=== PATIENT | female | born 1975 | race Caucasian/White ===

== ENCOUNTER 2019-09-20 12:59 | Emergency (ER) | payer BC, SELFPAY ==
[2019-09-20 13:01] VITALS: BP 146/84; PULSE 70; RESP 19; TEMP 36.5; O2SAT 100; BMI 36.8
--- NOTE | 2019-09-20 13:35 | HMH.EDUTC ---
[facility] Disposition Clinical Impression: Poison irena dermatitis Disposition: Home, Self-Care Condition on Discharge: Good Instructions: Summertime Rashes: Poison Irena, [place], and [place], Poison Irena, Poison [place], Poison [place], DI for Poison Irena Allergy, Prednisone Additional Instructions: Try to avoid three leafed plants Take Prednisone as prescribed Over the counter Benadryl may help with itching Oatmeal baths Cool, wet compresses Ice packs Topical menthol and phenol (calamine lotion) compounds may help to soothe the rash Follow up with Dr Padilla at [facility] if you start having any vison problems or changes in vision Return if needed Straight to ER if any life threatening symptoms Start Prednisone dose pack tomorrow Prescriptions: predniSONE [Prednisone 10mg Tab Dose-Pack] 10 mg PO UD DOSE PK #21 pack Transmission Status: Received by [facility] Referrals: Irma Royal PA [Primary Care Provider] - As needed Time of Disposition: 13:44 Medical Decision Making - Prince Inquiry Pt receiving controlled substance: No Prince was queried for this patient: No Vital Signs: 09/20/19 13:01 Temperature 97.7 F Temperature Source Oral Pulse Rate [Radial] 70 Respiratory Rate 19 Blood Pressure [Right Arm] 146/84 H Blood Pressure Mean [Right Arm] 104 Blood Pressure Source [Right Arm] Automatic Cuff Blood Pressure Position [Right Arm] Sitting 02 Sat by Pulse Oximetry 100 Oxygen Delivery Method Room Air Orders (Tests/Meds): ED MEDICATIONS Discontinued Medications Generic Name Dose Route Start Last Admin Trade Name Freq PRN Reason Stop Dose Admin Methylprednisolone Sodium Succinate 125 mg 09/20/19 13:37 09/20/19 13:50 Solu-Medrol 125mg/2ml Vial IM 09/20/19 13:38 125 mg ONCE ONE Administration [facility] HPI - General Stated complaint: poison irena Time Seen by Provider: 09/20/19 13:35 Mode of Arrival: Ambulatory Source of Information: Patient Limitations: No Limitations Description of Symptoms (Recalled from Triage Doc. by RN): Poison Irena in eye since Saturday HEENT Symptoms (Recalled from RN notes): Yes Resp Symptoms (Recalled from RN notes): No Skin Symptoms (Recalled from RN notes): No MS Symptoms (Recalled from RN notes): No Functional Status (Recalled from RN notes): wnl - History of Present Illness Provider Complaint: Patient states she has been working outside and pulling weeds States that she noticed she started breaking out in rash on Saturday States that it was on her wrist area and side of her face States that it has continued to get worse over the weekend and is around her States that she has tried over the counter stuff but hasnt worked Denies vision changes or problems - Related Data Home Medications Medication Instructions Recorded Confirmed Gabapentin [Neurontin 600mg 600 mg PO TID 04/06/18 04/06/18 tablet] buPROPion HCL [Wellbutrin SR 150mg 150 mg PO DAILY 04/06/18 04/06/18 Tablet] Previous Rx's Medication Instructions Recorded Azithromycin [Z-Andres 250mg Tab*] 250 mg PO UD DOSE PK #6 tab 04/30/19 methylPREDNISolone [Medrol] 4 mg PO DIRECTED 6 Days #21 04/30/19 tab.ds.pk predniSONE [Prednisone 10mg Tab 10 mg PO UD DOSE PK #21 pack 09/20/19 Dose-Pack] Allergies Allergy/AdvReac Type Severity Reaction Status Date / Time Penicillins [PENICILLINS] Allergy Mild Verified 04/06/18 09:27 sulfamethoxazole Allergy Mild Verified 04/06/18 09:27 [From BACTRIM] trimethoprim [From BACTRIM] Allergy Mild Verified 04/06/18 09:27 - Worker's Comp Is this a Worker's Comp case?: No [facility] History - Hepatitis A Screen Drug use history?: No High risk sexual behaviors?: No History of sexually transmitted infection?: No Currently employed?: No Childcare worker?: No Do you have indoor plumbing?: Yes Do you have electricity?: Yes Attestation statement:: This patient has been screened for Hepatitis A risk factors. I have reviewed
[2019-09-20 14:07] VITALS: BP 146/84; PULSE 70; RESP 19; TEMP 36.5; O2SAT 100
== END 2019-09-20 14:08 | disposition home or self-care (01) ==
PROVIDERS: Emergency Provider Nurse Practitioner; PCP Physician Assistant
DX: L23.7 Allergic contact dermatitis due to plants, except food (principal); Z88.0 Allergy status to penicillin; Z88.2 Allergy status to sulfonamides
CPT/HCPCS: 96372; 99201

== ENCOUNTER → 2019-09-28 13:54 | Outpatient (CLI) | payer BC, SELFPAY ==
--- NOTE | 2019-09-28 13:58 | XR_ITS ---
PROCEDURE: XR CERVICAL SPINE 4V CLINICAL INDICATION: Neck pain; RUE numbness COMPARISON: No exams were available for comparison FINDINGS: There is slight reversal of cervical lordosis which may be due to patient positioning or muscle spasm. Mild degenerative disc disease is present at C5-C6 and C6-C7. No foraminal narrowing apparent. No fracture or dislocation. No lytic or blastic change. No cervical ribs. IMPRESSION: Reversal of lordosis with degenerative disc disease Dictated by: Rusty Kelly MD 09/28/2019 15:27 Electronically signed by Rusty Kelly MD in [place] 09/28/2019 15:27
[2019-09-28 18:12] LABS: Chloride 100 mmol/L (98-107); Potassium 4.1 mmoL/L (3.5-5.1); Sodium 139 mmol/L (136-145)
[2019-09-28 18:14] LABS: Alanine Aminotransferase 20 U/L (12-78); Anion Gap 11.1 mEq/L (5-15); Aspartate Amino Transferase 22 U/L (14-36); Blood Urea Nitrogen 13 mg/dl (7-17); Carbon Dioxide 32 mmol/L (22.0-30.0); Estimated Glomerular Filt Rate 68 ml/min (>60); GFR (African American) 82 ML/MIN (>60)
[2019-09-28 18:15] LABS: Albumin Level 4.6 g/dl (3.5-5.0); Albumin/Globulin Ratio 1.5 (1.1-1.8); Alkaline Phosphatase 86 U/L (38-126); Bilirubin,Total 0.6 mg/dl (0.2-1.3); Calcium 10.5 mg/dl (8.4-10.2); Chol/HDL Ratio 2.7 (1-3.5); Cholesterol 196 mg/dl (140-200); Glucose 82 mg/dl (74-100); HDL Cholesterol 72 mg/dl (40-60); Total Protein,Serum 7.6 g/dl (6.3-8.2); Triglycerides 295 mg/dl (30-150); VLDL Cholesterol 59 mg/dL (0-40)
[2019-09-28 18:26] LABS: Direct LDL Cholesterol 87.02 mg/dL (100-129)
[2019-09-28 19:17] LABS: T4 (Thyroxine) 7.9 ug/dl (5.53-11.0)
[2019-09-28 19:30] LABS: Thyroid Stimulating Hormone 1.94 uIU/mL (0.465-4.68)
[2019-09-30 09:41] LABS: Vitamin D 25 Hydroxy 26.3 ng/mL (30.0-100.0)
== END ==
PROVIDERS: PCP Physician Assistant; Visit Provider Physician Assistant
DX: Z76.89 Persons encountering health services in other specified circumstances (principal); G54.2 Cervical root disorders, not elsewhere classified; R20.0 Anesthesia of skin; E55.9 Vitamin D deficiency, unspecified
CPT/HCPCS: 72050; 80053; 80061; 82652; 84436; 84443

== ENCOUNTER 2019-12-14 11:00 | Outpatient (RCR) | payer BC, SELFPAY ==
--- NOTE | 2019-12-02 09:15 | HMH.PTOPEV ---
PT Outpatient Evaluation Rehab PT Outpatient Evaluation Start: 12/02/19 08:09 Freq: Status: Active Protocol: Document 12/02/19 08:55 BRETT (Rec: 12/02/19 09:15 BRETT [id number]) Electronically Signed By Jaime Serrano, PT 12/02/19 08:55 Outpatient Therapy Subjective History Subjective History Patient is a 44 year old female presenting to outpatient PT with reports of sub-acute cervical spine pain with RUE radicular symptoms to C7/8 dermatomes. Symptom onset insidious starting 2019. Most recent imaging indicates reversal of cervical lordosis and DDD C 08/25 09/26. Comorbidities include CTS Sx x 2. Chief Complaint Pain,Paresthesia Symptom Type Ache,Numbness,Tingling Symptoms Relieved By Activity Symptoms Aggravated By Physical Activity Prior Functional Limitations None Current Functional Limitations Reaching,Lifting,Desk Work/ Reading Symptom Description Intermittent Level of pain today (0-10) 0 Pain scale - at its best (0-10) 0 Pain scale - at its worst (0-10) 5 Cervical Eval Palpation Cervical Muscles R Cervical Paraspinal,R CT Junction,R Thoracic Paraspinals Posture Head/C-Spine Posture Sitting Position C-Spine Flattened Head/C-Spine Posture Standing Position C-Spine Flattened Flexibility Deficits Upper Trapezius Muscle Length (R) Moderate Tightness,(L) Moderate Tightness Levaetor Scapulae Muscle Length (R) Moderate Tightness,(L) Moderate Tightness Pectoralis Minor Muscle Length (R) Moderate Tightness,(L) Moderate Tightness Passive Joint Mobility Cervical PIVM Dec: R C5/6 R C6/7 R C7/T1 WNL: R OA L OA R AA L AA R C2/3 L C2/3 R C3/4 L C3/4 R C4/5 L C4/5 L C5/6 L C6/7 L C7/T1 AROM Cervical Spine Extension Active Range of
== END 2019-12-14 12:00 | disposition home or self-care (01) ==
LOC: PT 11:00
PROVIDERS: PCP Physician Assistant; Visit Provider Physician Assistant
DX: G54.2 Cervical root disorders, not elsewhere classified (principal)
CPT/HCPCS: 97010; 97012; 97014; 97110; 97163; G0283

== ENCOUNTER 2020-04-10 13:59 | Emergency (ER) | payer BC, SELFPAY ==
[2020-04-10 14:14] VITALS: BP 127/58; PULSE 72; RESP 17; O2SAT 97; BMI 38.9
[2020-04-10 14:27] LABS: Apearance,Urine Clear (Clear); Bilirubin,Urine Negative (Negative); Blood, Urine Trace (Negative); Color,Urine Yellow (Yellow); Glucose,Urine (UA) Negative (Negative); Ketones,Urine Negative (Negative); PH,Urine 6.5 (5.0-8.5); Protein,Urine Negative (Negative); Specific Gravity, Urine 1.015 (1.005-1.030); UTC Leukocyte Esterase,Urine 1+ (Negative); UTC Nitrate,Urine Negative (Negative); Urobilinogen,Urine 0.2 EU/dl (0.2)
--- NOTE | 2020-04-10 14:29 | HMH.EDUTC ---
[facility] Disposition Clinical Impression: UTI (urinary tract infection) Qualifiers: Urinary tract infection type: site unspecified Hematuria presence: with hematuria Qualified Code(s): N39.0 - Urinary tract infection, site not specified Disposition: Home, Self-Care Condition on Discharge: Good Instructions: Urinary Tract Infection, DI for Urinary Tract Infection (UTI) Additional Instructions: Drink plenty of fluids. Take tylenol or ibuprofen for pain or fever. Take the medications as directed. Follow up with your regular doctor. GO TO THE ER FOR ANY WORSENING SYMPTOMS The pyridium will make your urine turn orange, this is an expected side effect. It will stain your clothes if it comes into contact with them. Prescriptions: Ondansetron [Zofran 4mg ODT] 4 mg PO Q8HP PRN #12 tab.rapdis PRN Reason: Nausea Transmission Status: Received by [facility] #[id number] Ciprofloxacin HCl [Cipro 500mg Tab] 500 mg PO BID 7 Days #14 tab Transmission Status: Received by [facility] #[id number] Fluconazole [Diflucan 150mg tab] 150 mg PO ONCE #1 tab Transmission Status: Pending to [facility] #[id number] Phenazopyridine HCl [Pyridium 200mg Tablet] 200 pow PO TID #6 tab Transmission Status: Received by [facility] #[id number] Referrals: Irma Royal PA [Primary Care Provider] - Time of Disposition: 14:34 Medical Decision Making - Medical Records Medical records reviewed: No: I reviewed the patient's medical records. - Prince Inquiry Pt receiving controlled substance: No Vital Signs: 04/10/20 14:14 04/10/20 14:42 Temperature 97.9 F Temperature Source Oral Pulse Rate 72 Pulse Rate [Radial] 72 Respiratory Rate 17 17 Blood Pressure 127/58 L Blood Pressure [Right Arm] 127/58 L Blood Pressure Mean [Right Arm] 81 Blood Pressure Source Automatic Cuff Blood Pressure Source [Right Arm] Automatic Cuff Blood Pressure Position Sitting Blood Pressure Position [Right Arm] Sitting 02 Sat by Pulse Oximetry 97 Oxygen Delivery Method Room Air Room Air - Lab Data Lab results reviewed: Yes: I reviewed the patient's lab results. Lab Results 04/10/20 14:20: Urine Color Yellow, Urine Appearance Clear, Urine pH 6.5, Ur Specific [place] 1.015, Urine Protein Negative, Urine Glucose (UA) Negative, Urine Ketones Negative, Urine Blood Trace, Urine Nitrate Negative, Urine Bilirubin Negative, Urine Urobilinogen 0.2, Ur Leukocyte Esterase 1+ A Orders (Tests/Meds): ORDERS Category Date Time Status Urine Culture Stat Micro 04/10/20 14:05 Received [facility] HPI - General Stated complaint: Possible bladder infection Time Seen by Provider: 04/10/20 14:29 Mode of Arrival: Ambulatory Source of Information: Patient Limitations: No Limitations Description of Symptoms (Recalled from Triage Doc. by RN): burning with urination x 1 week HEENT Symptoms (Recalled from RN notes): No Resp Symptoms (Recalled from RN notes): No Skin Symptoms (Recalled from RN notes): No MS Symptoms (Recalled from RN notes): No Functional Status (Recalled from RN notes): wnl - History of Present Illness Provider Complaint: She states that for the past 3 days she has had urinary frequency, dysruia and low back pain. She believes that she has a uti. - Related Data Home Medications Medication Instructions Recorded Confirmed Gabapentin [Neurontin 600mg 600 mg PO TID 04/06/18 09/28/19 tablet] buPROPion HCL [Wellbutrin SR 150mg 150 mg PO DAILY 04/06/18 09/28/19 Tablet] Previous Rx's Medication Instructions Recorded prednisone 20 mg tablet 20 mg PO DAILY #16 tab 09/28/19 ergocalciferol (vitamin D2) 1,250 1,250 mcg PO QWEEK #14 cap 09/30/19 mcg (50,000 unit) capsule cholecalciferol (vitamin D3) 25 25 mcg PO DAILY #90 cap 02/27/20 mcg (1,000 unit) capsule Ciprofloxacin HCl [Cipro 500mg 500 mg PO BID 7 Days #14 tab 04/10/20 Tab] Fluconazole [Diflucan 150mg tab] 1
[2020-04-10 14:42] VITALS: BP 127/58; PULSE 72; RESP 17; TEMP 36.6; O2SAT 97
== END 2020-04-10 14:43 | disposition home or self-care (01) ==
PROVIDERS: Emergency Provider Nurse Practitioner Family; PCP Physician Assistant
DX: N30.00 Acute cystitis without hematuria (principal); F41.9 Anxiety disorder, unspecified; Z88.0 Allergy status to penicillin; Z88.2 Allergy status to sulfonamides
CPT/HCPCS: 81003; 87086; 99201

== ENCOUNTER → 2021-05-31 17:44 | Outpatient (CLI) | payer BC, SELFPAY | PROVIDERS: PCP Physician Assistant; Visit Provider Nurse Practitioner | DX: Z20.822 Contact with and (suspected) exposure to COVID-19 (principal) | CPT/HCPCS: C9803; U0003; U0005 ==

== ENCOUNTER → 2021-06-08 16:00 | Outpatient (CLI) | payer BC, SELFPAY ==
[2021-06-08 19:46] LABS: Basophils # 0.1 K/mm3 (0-0.2); Basophils % 0.8 % (0.1-2.0); Eosinophils # 0.1 K/mm3 (0.0-0.4); Eosinophils % 1.5 % (0.1-12.0); Hematocrit 41.5 % (37.0-47.0); Lymphocytes # 2.2 K/mm3 (0.7-4.5); Lymphocytes % 35.2 % (10-50); Mean Corpuscular HGB Conc 33.6 g/dL (31.8-35.4); Mean Corpuscular Hemoglobin 30.6 pg (27.0-31.2); Mean Corpuscular Volume 90.9 fl (81-99); Mean Platelet Volume 9.9 fl (7.4-10.4); Monocytes # 0.3 K/mm3 (0.1-1.0); Neutrophils # 3.7 K/mm3 (1.8-7.8); Neutrophils % 58.4 % (37.0-80.0); Platelet Count 245 K/mm3 (142-424); Red Blood Count 4.57 M/mm3 (4.20-5.40); Red Cell Distribution Width 12.7 % (11.5-17.5); White Blood Count 6.3 K/mm3 (4.8-10.8)
[2021-06-08 20:00] LABS: Alanine Aminotransferase 22 U/L (12-78); Albumin Level 4.4 g/dl (3.5-5.0); Albumin/Globulin Ratio 1.7 (1.1-1.8); Alkaline Phosphatase 93 U/L (38-126); Anion Gap 15.2 mEq/L (5-15); Aspartate Amino Transferase 27 U/L (14-36); Bilirubin,Total 0.4 mg/dl (0.2-1.3); Blood Urea Nitrogen 9 mg/dl (7-17); Calcium 9.3 mg/dl (8.4-10.2); Carbon Dioxide 27 mmol/L (22.0-30.0); Chloride 102 mmol/L (98-107); Chol/HDL Ratio 3.5 (1-3.5); Cholesterol 191 mg/dl (140-200); Estimated Glomerular Filt Rate 90 ml/min (>60); GFR (African American) 109 ML/MIN (>60); Globulin 2.6 g/dL (1.3-3.2); Glucose 76 mg/dl (74-100); HDL Cholesterol 54 mg/dl (40-60); Potassium 4.2 mmoL/L (3.5-5.1); Sodium 140 mmol/L (136-145); Triglycerides 172 mg/dl (30-150); VLDL Cholesterol 34 mg/dL (0-40)
[2021-06-08 20:16] LABS: 25-OH Vitamin D, Total 50.5 ng/mL (30-100)
[2021-06-08 20:30] LABS: Thyroid Stimulating Hormone 1.84 uIU/mL (0.465-4.68)
== END ==
PROVIDERS: Visit Provider Physician Assistant
DX: Z00.00 Encounter for general adult medical examination without abnormal findings (principal); E66.9 Obesity, unspecified; Z68.41 Body mass index [BMI] 40.0-44.9, adult; Z79.899 Other long term (current) drug therapy
CPT/HCPCS: 80053; 80061; 82306; 84443; 85025

== ENCOUNTER 2021-06-18 17:59 | Emergency (ER) | payer BC, SELFPAY ==
[2021-06-18 18:08] VITALS: BP 181/110; PULSE 83; RESP 14; TEMP 36.4; O2SAT 99; BMI 39.8
--- NOTE | 2021-06-18 18:35 | HMH.EDUTC ---
[facility] [place] Disposition Clinical Impression: Sinusitis Disposition: Home, Self-Care Condition on Discharge: Good Instructions: DI for Sinusitis, Sinusitis Additional Instructions: Drink plenty of fluids. Take tylenol or ibuprofen for pain or fever. Take the medications as directed. Follow up with your regular doctor. GO TO THE ER FOR ANY WORSENING SYMPTOMS Prescriptions: methylPREDNISolone [Medrol] 4 mg PO DIRECTED 6 Days #21 packet Transmission Status: Pending to [facility] Azithromycin [Z-Andres 250mg Tab*] 250 mg PO UD DOSE PK #6 tab Transmission Status: Pending to [facility] Referrals: Irma Royal PA [Primary Care Provider] - Time of Disposition: 19:44 Medical Decision Making - Medical Records Medical records reviewed: No: I reviewed the patient's medical records. - Prince Inquiry Pt receiving controlled substance: No Vital Signs: 06/18/21 18:08 Temperature 97.6 F Temperature Source Oral Pulse Rate [Right] 83 Respiratory Rate 14 Blood Pressure [Right Arm] 181/110 H Blood Pressure Mean [Right Arm] 133 02 Sat by Pulse Oximetry 99 - Lab Data Lab results reviewed: Yes: I reviewed the patient's lab results. Orders (Tests/Meds): ORDERS Category Date Time Status Covid-19 Nasal PCR ([facility]) Routine Lab 06/18/21 18:11 Received [facility] [place] HPI - General Stated complaint: Covid eXPOSED sinus infection Time Seen by Provider: 06/18/21 18:35 Mode of Arrival: Ambulatory Source of Information: Patient Limitations: No Limitations Description of Symptoms (Recalled from Triage Doc. by RN): pt c/o sinus congestion/drainage with green mucous. is covid + HEENT Symptoms (Recalled from RN notes): Yes Resp Symptoms (Recalled from RN notes): No Skin Symptoms (Recalled from RN notes): No MS Symptoms (Recalled from RN notes): No Functional Status (Recalled from RN notes): wnl - Related Data Previous Rx's Medication Instructions Recorded cholecalciferol (vitamin D3) 25 25 mcg PO DAILY #90 cap 09/26/20 mcg (1,000 unit) capsule buspirone 7.5 mg tablet See Rx Instructions .ROUTE 03/23/21 .COMPLEX #180 tab ergocalciferol (vitamin D2) 1,250 See Rx Instructions .ROUTE 05/15/21 mcg (50,000 unit) capsule .COMPLEX #14 cap bupropion HCl 300 mg 24 hr tablet, 300 mg PO DAILY #30 tab 06/08/21 extended release semaglutide 1 mg/dose (4 mg/3 mL) 1 mg SQ WEEKLY #3 ml 06/08/21 subcutaneous pen injector Azithromycin [Z-Andres 250mg Tab*] 250 mg PO UD DOSE PK #6 tab 06/18/21 methylPREDNISolone [Medrol] 4 mg PO DIRECTED 6 Days #21 06/18/21 packet Allergies Allergy/AdvReac Type Severity Reaction Status Date / Time Penicillins [PENICILLINS] Allergy Mild Verified 06/08/21 15:51 sulfamethoxazole Allergy Mild Verified 06/08/21 15:51 [From BACTRIM] trimethoprim [From BACTRIM] Allergy Mild Verified 06/08/21 15:51 - Worker's Comp Is this a Worker's Comp case?: No [facility] History - Hepatitis A Screen Drug use history?: No High risk sexual behaviors?: No History of sexually transmitted infection?: No Currently employed?: No Childcare worker?: No Do you have indoor plumbing?: Yes Do you have electricity?: Yes Attestation statement:: This patient has been screened for Hepatitis A risk factors. I have reviewed the patient's past medical history: Yes Medical History: Reports:: Anxiety, Gall Bladder Disease, Migraine, Urinary Tract Infection Comment: GBreast Cyst Removal, RT and LT Wrist Carpaltunnel, Other Surgeries: Yes: Appendectomy, - Social History Smoking Status: Never smoker Alcohol Intake: never Substance Use Type: denies use Occupational Status: other Housing: house - Psychiatric History Pschychiatric History:: Reports:: Anxiety ROS Obtained: Yes All systems reviewed & no additional complaints - Constitutional Constitutional: Denies chills, Denies fever(s) - Eyes Eyes: Denies eye discharge, Denies itchy eyes - ENT Ears, Nose
[2021-06-18 19:53] VITALS: BP 181/110; PULSE 83; RESP 14; TEMP 36.4
== END 2021-06-18 19:55 | disposition home or self-care (01) ==
PROVIDERS: Emergency Provider Nurse Practitioner Family; PCP Physician Assistant
DX: J01.90 Acute sinusitis, unspecified (principal); F41.9 Anxiety disorder, unspecified; Z88.0 Allergy status to penicillin
CPT/HCPCS: 99202; C9803; G0463; U0003; U0005

== ENCOUNTER 2021-10-02 09:00 | Outpatient (RCR) | payer BC, SELFPAY ==
--- NOTE | 2021-08-07 16:37 | HMH.PTOPEV ---
PT Outpatient Evaluation Rehab PT Outpatient Evaluation Start: 08/07/21 15:57 Freq: Status: Active Protocol: Document 08/07/21 15:58 DAVIDKAVITA (Rec: 08/07/21 16:37 KENYA [id number]) Electronically Signed By Davey Whelan, BRITTANY 08/07/21 15:58 Outpatient Therapy Subjective History Subjective History This is the initial Physical Therapy evaluation for Jessica Greenberg. Pt reports to PT w/ c /o RUE paresthesia into hand and pain in lateral upper arm. Pt reports about 1-2 years ago she had this same problem. Pt states she did physical therapy and pain went away, up until ~ 2 months ago. Pt reports insidious onset of pain and paresthesia ~ 2 months ago. Pt states paresthesia is in 1st two fingers and thub, and pain is in lateral upper arm. Pt states she has been using her LUE more for ADL's secondary to pain and tingling. Chief Complaint Pain,Paresthesia,Weakness Symptom Type Ache,Dull,Numbness,Tingling Symptoms Relieved By Heat Symptoms Aggravated By Physical Activity,Lifting Prior Functional Limitations None Current Functional Limitations Lifting,Housework,Driving, Sleeping,Recreation Activity Symptom Description Intermittent Pain scale - at its best (0-10) 0 Pain scale - at its worst (0-10) 6 Cervical Eval Posture Head/C-Spine Posture Sitting Position C-Spine Flattened Head/C-Spine Posture Standing Position C-Spine Flattened AROM Cervical Spine Extension Active Range of 50 Motion (degrees) Cervical Spine Flexion Active Range of 35 Motion (degrees) Cervical Spine Right Lateral Flexion 40 Active Range of Motion (degrees) Cervical Spine Left Lateral Flexion 40 Active Range of Motion (degrees) Cervical Spine Right Rotation Active 60 Range of Motion (degrees) Cervical Spine Left Rotation Active 70 Range of Motion (degrees) MMT Left Deltoid (C5) 5 Normal Biceps Brachii Strength Grade 5 Normal Triceps Brachii Strength Grade 4 Good Right Deltoid (C5) 5 Normal Biceps Brachii Strength Grade 4 Good Special Test C-Spine Foraminal Compression (Spurling) Negative Left,Positive Right Test C-Spine Foraminal Distraction Test Positive C-Spine Compr
== END 2021-10-02 09:05 | disposition home or self-care (01) ==
LOC: PT 09:00
PROVIDERS: PCP Physician Assistant; Visit Provider Physician Assistant
DX: G54.2 Cervical root disorders, not elsewhere classified (principal)
CPT/HCPCS: 20560; 97010; 97012; 97014; 97110; 97140; 97163; 97164; G0283

== ENCOUNTER → 2021-10-10 15:27 | Outpatient (CLI) | payer BC, SELFPAY ==
[2021-10-10 14:08] LABS: Adenovirus F 40/41, stool Not Detected (NotDetected); Astrovirus Not Detected (NotDetected); Campylobacter Not Detected (NotDetected); Clostridium Difficile A/B, PCR Not Detected (NotDetected); Cryptosporidium Not Detected (NotDetected); Cyclospora Cayetanesis Not Detected (NotDetected); Entamoeba histolytica Not Detected (NotDetected); Enteroaggregative E coli Not Detected (NotDetected); Enteropathogenic E coli Not Detected (NotDetected); Enterotoxigenic E coli Not Detected (NotDetected); Giardia lamblia Not Detected (NotDetected); Norovirus Not Detected (NotDetected); Plesimonas Shigalloides, PCR Not Detected (NotDetected); Rotavirus A Not Detected (NotDetected); Salmonella, PCR Not Detected (NotDetected); Sapovirus Not Detected (NotDetected); Shiga-like toxin E coli Not Detected (NotDetected); Shigella Enterovasive E coli Not Detected (NotDetected); Vibrio Cholerae Not Detected (NotDetected); Vibrio, PCR Not Detected (NotDetected); Yersinia Entercolitica, PCR Not Detected (NotDetected)
== END ==
PROVIDERS: Visit Provider Physician Assistant
DX: R19.7 Diarrhea, unspecified (principal)
CPT/HCPCS: 87507

== ENCOUNTER → 2022-02-19 07:12 | Outpatient (CLI) | payer BC, SELFPAY ==
--- NOTE | 2022-02-19 07:20 | CT_ITS ---
FINAL REPORT CLINICAL HISTORY: dent in skull, top of her head. headache. no trauma. felt dent 6 month ago FINDINGS: Axial images of the head were obtained without contrast. Coronal reformatted images were also obtained.This study was performed with techniques to keep radiation doses as low as reasonably achievable (ALARA). Individualized dose reduction techniques using automated exposure control or adjustment of mA and/or kV according to the patient''s size were employed. There is no evidence of intracranial hemorrhage or mass. The ventricular size is within normal limits. There is no evidence of shift of the midline structures. No abnormal extra axial fluid collection is identified. No skull abnormality is seen on the bone window images. IMPRESSION: No acute intracranial abnormality. Reviewed, Interpreted and Dictated by Leonardo Bundy III, MD Transcribed by Mariam Joshi Authenticated and [facility]
== END ==
PROVIDERS: PCP Physician Assistant; Visit Provider Physician Assistant
DX: M95.2 Other acquired deformity of head (principal)
CPT/HCPCS: 70450

== ENCOUNTER 2022-03-17 18:56 | Emergency (ER) | payer BC, SELFPAY ==
[2022-03-17 19:40] VITALS: BP 143/67; PULSE 81; RESP 19; TEMP 36.9; O2SAT 99; BMI 38.6
--- NOTE | 2022-03-17 20:07 | EXP.UTC ---
Discharge Plan Disposition Patient Disposition: Home, Self-Care Condition: Good Prescriptions Prescriptions: New azithromycin [Zithromax Z-Andres] 250 mg tablet See Rx Instructions .ROUTE .COMPLEX 5 Days Qty: 6 0RF Rx Instructions: For 250 mg dose pack: take 500 mg today (day 1), then 250 mg for 4 days (days 2-5) prednisone [prednisone] 20 mg tablet 20 mg PO BID 5 Days Qty: 10 0RF No Action dextroamphetamine-amphetamine [Adderall] 10 mg tablet 10 mg PO QHS Qty: 30 0RF dextroamphetamine-amphetamine [Adderall XR] 20 mg capsule,extended release 24hr 20 mg PO DAILY Qty: 30 0RF cholecalciferol (vitamin D3) 25 mcg (1,000 unit) capsule 25 mcg PO DAILY Qty: 90 0RF ergocalciferol (vitamin D2) [Vitamin D2] 1,250 mcg (50,000 unit) capsule See Rx Instructions .ROUTE .COMPLEX Qty: 14 3RF Dose Instruction: TAKE 1 CAPSULE BY MOUTH ONCE WEEKLY Rx Instructions: TAKE 1 CAPSULE BY MOUTH ONCE WEEKLY buspirone 7.5 mg tablet See Rx Instructions .ROUTE .COMPLEX Qty: 180 3RF Dose Instruction: TAKE ONE TABLET BY MOUTH TWICE A DAY *MAY CAUSE DROWSINESS* Rx Instructions: TAKE ONE TABLET BY MOUTH TWICE A DAY *MAY CAUSE DROWSINESS* Referrals Follow up/Referrals: Irma Royal PA [Primary Care Provider] - See instructions Clinical Impressions Clinical Impression: Sinusitis Instructions Patient Instructions: DI for Sinusitis, Sinusitis, Sore Throat Discharge ED Provider: Jami Couch [facility] General Stated complaint: Sore throat,Congestion,cough Mode of Arrival: Ambulatory Source of Information: Patient Limitations: No Limitations Time Seen by Provider: 03/17/22 20:07 Description of Symptoms (Recalled from Triage Doc. by RN): PATIENT C/O SORE THROAT, COUGH, AND FEELS LIKE WATER IN EARS X 3 DAYS HEENT Symptoms (Recalled from RN notes): Yes Resp Symptoms (Recalled from RN notes): No Skin Symptoms (Recalled from RN notes): No MS Symptoms (Recalled from RN notes): No Functional Status (Recalled from RN notes): WNL History of Present Illness Provider Complaint: Patient states that she has been having sore throat, ears stopped up feels like they have water in them, sinus congestion and pressure State that today she was feeling worse so she came in to get checked Related Data Previous Rx's Medication Instructions Recorded cholecalciferol (vitamin D3) 25 25 mcg PO DAILY #90 caps 09/26/20 mcg (1,000 unit) capsule buspirone 7.5 mg tablet See Rx Instructions .Route 07/25/21 .COMPLEX #180 tabs ergocalciferol (vitamin D2) 1,250 See Rx Instructions .Route 07/25/21 mcg (50,000 unit) capsule (Vitamin .COMPLEX #14 caps D2) dextroamphetamine-amphetamine 10 10 mg PO QHS #30 tabs 02/05/22 mg tablet (Adderall) dextroamphetamine-amphetamine ER 20 mg PO DAILY #30 caps 02/05/22 20 mg 24hr capsule,extend release (Adderall XR) azithromycin 250 mg tablet See Rx Instructions PO .COMPLEX 5 03/17/22 (Zithromax Z-Andres) days #6 tabs prednisone 20 mg tablet 20 mg PO BID 5 days #10 tabs 03/17/22 Allergies Allergy/AdvReac Type Severity Reaction Status Date / Time Penicillins [PENICILLINS] Allergy Mild Verified 02/05/22 15:40 sulfamethoxazole Allergy Mild Verified 02/05/22 15:40 [From BACTRIM] trimethoprim [From BACTRIM] Allergy Mild Verified 02/05/22 15:40 Worker's Comp Is this a Worker's Comp case?: No [facility] Medical History (Updated 03/17/22 @ 20:13 by Jami Couch APRN) Anxiety Attention Deficit Hyperactivity Disorder (ADHD) BMI 40.0-44.9, adult Depression Migraines Surgical History (Updated 03/17/22 @ 19:59 by Sarah Knox RN) History of section History of cholecystectomy Social History (Updated 03/17/22 @ 19:59 by Sarah Knox RN) Smoking Status: Never smoker second hand exposure: No alcohol intake: never substance use type: denies use current occupational status: other Travel in the last 8 weeks:
[2022-03-17 20:12] LABS: UTC Strep Screen (Rapid) Negative (Negative)
[2022-03-17 20:13] VITALS: BP 143/67; PULSE 81; RESP 19; TEMP 36.9; O2SAT 99
== END 2022-03-17 20:18 | disposition home or self-care (01) ==
PROVIDERS: Emergency Provider Nurse Practitioner; PCP Physician Assistant
DX: J32.9 Chronic sinusitis, unspecified (principal)
CPT/HCPCS: 87880; 99212; G0463

== ENCOUNTER 2022-04-29 11:33 | Emergency (ER) | payer BC, SELFPAY ==
[2022-04-29 12:40] VITALS: BP 149/89; PULSE 89; RESP 19; TEMP 36.7; O2SAT 99; BMI 39.1
[2022-04-29 12:57] LABS: UTC Strep Screen (Rapid) Negative (Negative)
[2022-04-29 12:58] LABS: UTC Influenza A Antigen Negative (Negative); UTC Influenza B Antigen Negative (Negative)
--- NOTE | 2022-04-29 13:04 | EXP.UTC ---
Discharge Plan Disposition Patient Disposition: Home, Self-Care Condition: Good Prescriptions Prescriptions: New azithromycin [Zithromax Z-Andres] 250 mg tablet See Rx Instructions .ROUTE .COMPLEX 5 Days Qty: 6 0RF Rx Instructions: For 250 mg dose pack: take 500 mg today (day 1), then 250 mg for 4 days (days 2-5) prednisone [prednisone] 20 mg tablet 20 mg PO BID 5 Days Qty: 10 0RF No Action cholecalciferol (vitamin D3) 25 mcg (1,000 unit) capsule 25 mcg PO DAILY Qty: 90 0RF ergocalciferol (vitamin D2) [Vitamin D2] 1,250 mcg (50,000 unit) capsule See Rx Instructions .ROUTE .COMPLEX Qty: 14 3RF Dose Instruction: TAKE 1 CAPSULE BY MOUTH ONCE WEEKLY Rx Instructions: TAKE 1 CAPSULE BY MOUTH ONCE WEEKLY buspirone 7.5 mg tablet See Rx Instructions .ROUTE .COMPLEX Qty: 180 3RF Dose Instruction: TAKE ONE TABLET BY MOUTH TWICE A DAY *MAY CAUSE DROWSINESS* Rx Instructions: TAKE ONE TABLET BY MOUTH TWICE A DAY *MAY CAUSE DROWSINESS* dextroamphetamine-amphetamine [Adderall] 10 mg tablet 10 mg PO QHS Qty: 30 0RF dextroamphetamine-amphetamine [Adderall XR] 20 mg capsule,extended release 24hr 20 mg PO DAILY Qty: 30 0RF Referrals Follow up/Referrals: Irma Royal PA [Primary Care Provider] - See instructions Activity Restrictions/Add. Instructions Additional Instructions/Restrictions: *Monitor Temp, Over the counter Motrin or Tylenol as directed/as needed Tylenol every 4 hours and Motrin every 6 hours (as long as your family doctor has told you that you can take it) for fever or pain. and straight to ER if unable to lower temp less than 101.0 after medication given *Warm salt water gargles may help to soothe the throat *Throat Lozenges? *Warm fluids like tea with honey may help to soothe the throat? *Sleep elevated *Humidifier/Vaporizer Your throat swab was sent for culture. Those results are typically sent to your primary care. Be sure to follow up in 2-3 days with your family doctor/primary care physician if no improvement so they can review those result and treat if necessary. If you don?t have a primary care doctor, I recommend you get one but in the mean time, you will have to return to a walk in clinic Follow up IMMEDIATELY for new or worsening symptoms or no Noticeable improvement over the next 48-72 hours. 911 for difficulty breathing or swallowing Clinical Impressions Clinical Impression: Sinusitis Instructions Patient Instructions: DI for Sinusitis, Sinusitis Discharge ED Provider: Jami Couch [facility] General Stated complaint: Sore throat, cough Mode of Arrival: Ambulatory Source of Information: Patient Limitations: No Limitations Time Seen by Provider: 04/29/22 13:05 Description of Symptoms (Recalled from Triage Doc. by RN): PATIENT C/O SORE THROAT, COUGH AND EAR PAIN FOR APPROX 1 MONTH HEENT Symptoms (Recalled from RN notes): Yes Resp Symptoms (Recalled from RN notes): Yes Skin Symptoms (Recalled from RN notes): No MS Symptoms (Recalled from RN notes): No Functional Status (Recalled from RN notes): WNL History of Present Illness Provider Complaint: Patient states that she started [facility] with sinus congestion and pressure States that she was given antibiotics and symptoms got better after that but returned around [place] States that she has been having sinus pain and pressure again with pain and pressure in her ears and sore throat States that today she was feeling worse so she came in to get checked Related Data Previous Rx's Medication Instructions Recorded cholecalciferol (vitamin D3) 25 25 mcg PO DAILY #90 caps 09/26/20 mcg (1,000 unit) capsule buspirone 7.5 mg tablet See Rx Instructions .Route 07/25/21 .COMPLEX #180 tabs ergocalciferol (vitamin D2) 1,250 See Rx Instructions .Route 07/25/21 mcg (50,000 unit) capsule (Vitamin .COMPLEX #14 caps D2) dextroamphetamine-amphetamine 10
[2022-04-29 13:07] VITALS: BP 149/89; PULSE 89; RESP 19; TEMP 36.7; O2SAT 99
== END 2022-04-29 13:23 | disposition home or self-care (01) ==
PROVIDERS: Emergency Provider Nurse Practitioner; PCP Physician Assistant
DX: J32.9 Chronic sinusitis, unspecified (principal)
CPT/HCPCS: 87804; 87880; 99212; 99213; G0463

== ENCOUNTER → 2023-02-18 20:32 | Outpatient (CLI) | payer BC, SELFPAY | PROVIDERS: PCP Student in an Organized Health Care Education/Training Program; Visit Provider Student in an Organized Health Care Education/Training Program | DX: R50.9 Fever, unspecified (principal); J02.9 Acute pharyngitis, unspecified; R09.89 Other specified symptoms and signs involving the circulatory and respiratory systems; B95.0 Streptococcus, group A, as the cause of diseases classified elsewhere | CPT/HCPCS: 87070; 87635 ==

== ENCOUNTER 2023-05-15 22:03 | Outpatient (CLI) | payer BC, SELFPAY ==
[2023-05-15 23:05] LABS: Amphetamine/Metha Screen,Urine Positive ng/ml (<1000); Barbiturates Screen,Urine Negative ng/ml (<200)
[2023-05-15 23:07] LABS: Benzodiazepines Screen,Urine Negative ng/ml (<200)
[2023-05-15 23:08] LABS: Cannabinoid Screen,Urine Negative ng/ml (<50); Cocaine Screen,Urine Negative ng/ml (<300)
[2023-05-15 23:10] LABS: Methadone Screen,Urine Negative ng/ml (<300); Opiate Screen,Urine Negative ng/ml (<300)
[2023-05-15 23:11] LABS: Phencyclidine Screen,Urine Negative ng/ml (<25)
== END 2023-05-15 23:59 ==
LOC: LAB.DROPOF 22:03
PROVIDERS: PCP Physician Assistant; Visit Provider Physician Assistant
DX: F90.9 Attention-deficit hyperactivity disorder, unspecified type (principal); Z79.899 Other long term (current) drug therapy
CPT/HCPCS: 80307

== ENCOUNTER 2023-06-01 17:44 | Emergency (ER) | payer BC, SELFPAY ==
[2023-06-01 17:51] VITALS: BMI 38.9
--- NOTE | 2023-06-01 17:51 | XR_ITS ---
PROCEDURE INFORMATION: Exam: XR Left Hand Exam date and time: 06/01/2023 5:59 PM Age: 48 years old Clinical indication: Pain; Swelling and other: Bruising; Hand; Left; Additional info: Injury. Swelling and bruising on posterior hand, 1-3 mc area TECHNIQUE: Imaging protocol: Radiologic exam of the left hand. Views: 3 or more views. COMPARISON: No relevant prior studies available. FINDINGS: Bones/joints: Osseous structures are intact. No fracture or malalignment. Visualized joint surfaces are preserved. 8 mm circumscribed radiolucent bone lesion adjacent to the articular surface distal radius on the representing small benign bone cyst or degenerative subchondral cyst. Soft tissues: Unremarkable. IMPRESSION: No acute bony abnormality.
--- NOTE | 2023-06-01 18:39 | EXP.UTC ---
Discharge Plan Disposition Patient Disposition: Home, Self-Care Condition: Good Prescriptions Prescriptions: No Action dextroamphetamine-amphetamine 20 mg tablet 20 mg PO BID 30 Days Qty: 60 0RF cholecalciferol (vitamin D3) 25 mcg (1,000 unit) capsule 25 mcg PO DAILY Qty: 90 0RF buspirone 7.5 mg tablet See Rx Instructions .ROUTE .COMPLEX Qty: 180 3RF Dose Instruction: TAKE ONE TABLET BY MOUTH TWICE A DAY *MAY CAUSE DROWSINESS* Rx Instructions: TAKE ONE TABLET BY MOUTH TWICE A DAY *MAY CAUSE DROWSINESS* ergocalciferol (vitamin D2) [Vitamin D2] 1,250 mcg (50,000 unit) capsule See Rx Instructions .ROUTE .COMPLEX Qty: 14 2RF Dose Instruction: TAKE 1 CAPSULE BY MOUTH ONCE WEEKLY Rx Instructions: TAKE 1 CAPSULE BY MOUTH ONCE WEEKLY Referrals Follow up/Referrals: Irma Royal PA [Primary Care Provider] - See instructions Activity Restrictions/Add. Instructions Additional Instructions/Restrictions: Rest the extremity, apply ice for 15 minutes as tolerated three or four times per day for the next couple of days, Wear the yan wrap for compression, Elevate the extremity as tolerated while you are resting. Take tylenol for pain. Follow up with your regular doctor. GO TO THE ER FOR ANY WORSENING SYMPTOMS Clinical Impressions Clinical Impression: Hematoma of left hand Instructions Patient Instructions: DI for Hematoma (Bruise) Discharge ED Provider: Ashish Hearn [facility] General Stated complaint: LT hand inj Time Seen by Provider: 06/01/23 18:39 History of Present Illness Provider Complaint: She states that since earlier today she has had pain and bruising of the back of her left hand. She denies any known injury, but her symptoms began after she was clapping very hard at a ball game. Related Data Previous Rx's Medication Instructions Recorded cholecalciferol (vitamin D3) 25 25 mcg PO DAILY #90 caps 09/26/21 mcg (1,000 unit) capsule buspirone 7.5 mg tablet See Rx Instructions .Route 11/19/22 .COMPLEX #180 tabs ergocalciferol (vitamin D2) 1,250 See Rx Instructions .Route 11/26/22 mcg (50,000 unit) capsule (Vitamin .COMPLEX #14 caps D2) dextroamphetamine-amphetamine 20 20 mg PO BID 30 days #60 tabs 05/16/23 mg tablet Allergies Allergy/AdvReac Type Severity Reaction Status Date / Time Penicillins [PENICILLINS] Allergy Mild Verified 05/15/23 15:59 sulfamethoxazole Allergy Mild Verified 05/15/23 15:59 [From BACTRIM] trimethoprim [From BACTRIM] Allergy Mild Verified 05/15/23 15:59 [facility] Disclaimer: The information contained in this section may have been updated after the patient was seen, as this information can be updated by other users. Medical History Anxiety Attention Deficit Hyperactivity Disorder (ADHD) BMI 40.0-44.9, adult Depression Migraines Surgical History History of section History of cholecystectomy Family History Other No significant family history Social History Smoking Status: Never smoker second hand exposure: No alcohol intake: never substance use type: denies use current occupational status: other Travel in the last 8 weeks: None housing: house ROS Obtained: Yes All systems reviewed & no additional complaints except as documented Constitutional Constitutional: Denies chills and Denies fever(s) Eyes Eyes: Denies eye discharge ENT Ears, Nose, Mouth, and Throat: Denies dizziness, Denies otalgia and Denies sore throat Cardiovascular Cardiovascular: Denies chest pain Respiratory Respiratory: Denies shortness of breath, Denies chest congestion, Denies cough, Denies stridor and Denies wheezing Gastrointestinal Gastrointestingal: Denies nausea or vomiting Musculoskeletal Musculoskeletal: Reports as per HPI Integumentary/Breasts Skin/Breast: Reports as per HPI Neurologic Neurologic: Denies dizziness and Denies paresthesias Allergic/Immunologic Allergic/Immunologic: Denies wheezing Physical Exam General General appearance: alert and in no apparent distress Head Head exam: atraumatic, normocephalic and normal inspection Eye Eye exam: Present normal appearance, PERRL and EOMI ENT ENT exam: Present normal exam, normal oropharynx, mucous membranes moist, TM's normal bilaterally and normal external ear exam Neck Neck exam: Present normal inspection, full ROM and trachea midline; Absent meningismus or lymphadenopathy Chest Chest inspection: Present normal inspection and symmetric chest wall rise; Absent tenderness Respiratory Respiratory exam: Present normal lung sounds bilaterally; Absent respiratory distress Cardiovascular Cardiovascular exam: Present regular rate and normal rhythm; Absent JVD Abdominal Exam Abdominal exam: Present soft and normal bowel sounds; Absent distention, tenderness or guarding Extremities Exam Extremities exam: Present normal inspection, full ROM and normal capillary refill; Absent calf tenderness Back Exam Back exam: Present normal inspection; Absent tenderness Neurological Exam Neurological exam: Present alert and oriented X3 Psychiatric Psychiatric exam: Present normal affect and normal mood Skin Skin exam: Present other (there is an area of bruising on the dorsal aspect of her left hand that measures 4 cm diameter. no edema. ) Lymphatic Lymphatic Findings: no adenopathy Medical Decision Making Medical Records Medical records reviewed: No I reviewed the patient's medical records. Prince Inquiry Pt receiving controlled substance: No Orders (Tests/Meds): ORDERS Category Date Time Status Hand XR left minimum 3 views [XR hand LT min 3V] Stat Exams 06/01/23 17:51 Completed Radiology Data #1: Image(s): Hand Image Reviewed: Yes I reviewed the patient's radiology image and Yes I have reviewed radiologist's interpretation Preliminary Findings: Normal/NAD and No Fracture Seen PROCEDURE INFORMATION: Exam: XR Left Hand Exam date and time: 06/01/2023 5:59 PM Age: 48 years old Clinical indication: Pain; Swelling and other: Bruising; Hand; Left; Additional info: Injury. Swelling and bruising on posterior hand, 1-3 mc area TECHNIQUE: Imaging protocol: Radiologic exam of the left hand. Views: 3 or more views. COMPARISON: No relevant prior studies available. FINDINGS: Bones/joints: Osseous structures are intact. No fracture or malalignment. Visualized joint surfaces are preserved. 8 mm circumscribed radiolucent bone lesion adjacent to the articular surface distal radius on the representing small benign bone cyst or degenerative subchondral cyst. Soft tissues: Unremarkable. IMPRESSION: No acute bony abnormality.
[2023-06-01 18:40] VITALS: BP 141/74; PULSE 86; RESP 18; TEMP 36.7; O2SAT 99; BMI 38.9
[2023-06-01 19:16] VITALS: BP 141/74; PULSE 86; RESP 18; TEMP 36.7; O2SAT 99
== END 2023-06-01 19:24 | disposition home or self-care (01) ==
PROVIDERS: Emergency Provider Nurse Practitioner Family; PCP Physician Assistant
DX: S60.222A Contusion of left hand, initial encounter (principal); X50.0XXA Overexertion from strenuous movement or load, initial encounter
CPT/HCPCS: 73130; 99212; 99214; G0463

== ENCOUNTER 2023-07-31 15:48 | Outpatient (CLI) | payer BC, SELFPAY ==
[2023-07-31 16:57] LABS: Basophils # 0.1 K/mm3 (0-0.2); Basophils % 1.4 % (0.1-2.0); Eosinophils # 0.1 K/mm3 (0.0-0.4); Eosinophils % 1.8 % (0.1-12.0); Hematocrit 39.7 % (37.0-47.0); Hemoglobin 12.9 g/dL (12.2-16.2); Lymphocytes # 1.3 K/mm3 (0.7-4.5); Lymphocytes % 34.7 % (10-50); Mean Corpuscular HGB Conc 32.4 g/dL (31.8-35.4); Mean Corpuscular Hemoglobin 30.7 pg (27.0-31.2); Mean Corpuscular Volume 94.6 fl (81-99); Mean Platelet Volume 9.9 fl (7.4-10.4); Monocytes # 0.3 K/mm3 (0.1-1.0); Monocytes % 8.4 % (1.7-9.3); Neutrophils % 53.8 % (37.0-80.0); Platelet Count 184 K/mm3 (142-424); Red Cell Distribution Width 13.1 % (11.5-17.5); White Blood Count 3.8 K/mm3 (4.8-10.8)
[2023-07-31 17:09] LABS: Alanine Aminotransferase 35 U/L (12-78); Albumin Level 3.9 g/dl (3.5-5.0); Albumin/Globulin Ratio 1.6 (1.1-1.8); Alkaline Phosphatase 83 U/L (38-126); Aspartate Amino Transferase 39 U/L (14-36); Bilirubin,Total 0.5 mg/dl (0.2-1.3); Blood Urea Nitrogen 16 mg/dl (7-17); Calcium 9.5 mg/dl (8.4-10.2); Carbon Dioxide 27 mmol/L (22.0-30.0); Chloride 107 mmol/L (98-107); Chol/HDL Ratio 4.5 (1-3.5); Cholesterol 176 mg/dl (140-200); Estimated Glomerular Filt Rate 106 ml/min (>60); GFR (African American) 129 ML/MIN (>60); Globulin 2.5 g/dL (1.3-3.2); Glucose 99 mg/dl (74-100); HDL Cholesterol 39 mg/dl (40-60); Sodium 137 mmol/L (136-145); Total Protein,Serum 6.4 g/dl (6.3-8.2); Triglycerides 191 mg/dl (30-150); VLDL Cholesterol 38 mg/dL (0-40)
[2023-07-31 17:20] LABS: Direct LDL Cholesterol 80.75 mg/dL (100-129)
[2023-07-31 17:26] LABS: 25-OH Vitamin D, Total 69.9 ng/mL (30-100)
[2023-07-31 17:39] LABS: Thyroid Stimulating Hormone < 0.02 uIU/mL (0.465-4.68)
[2023-07-31 17:44] LABS: Iron 54 ug/dL (37-170); Total Iron Binding Capacity 238 ug/dL (265-497)
[2023-07-31 17:58] LABS: Vitamin B12 593 pg/mL (239-931)
[2023-07-31 18:00] LABS: Ferritin 147 ng/ml (6.24-137)
[2023-08-02 15:18] LABS: EBV Ab VCA, IgG 99.7 U/mL (0.0-17.9); EBV Ab VCA, IgM <36.0 U/mL (0.0-35.9)
== END 2023-07-31 23:59 | disposition home or self-care (01) ==
LOC: LAB 15:48
PROVIDERS: PCP Physician Assistant; Visit Provider Physician Assistant
DX: R53.83 Other fatigue (principal); R79.0 Abnormal level of blood mineral
CPT/HCPCS: 36415; 80053; 80061; 82306; 82607; 82728; 83540; 83550; 84443; 85025; 86664; 86665

== ENCOUNTER 2023-08-06 11:41 | Outpatient (CLI) | payer BC, SELFPAY ==
[2023-08-06 12:02] LABS: Basophils # 0.1 K/mm3 (0-0.2); Basophils % 0.9 % (0.1-2.0); Eosinophils # 0.1 K/mm3 (0.0-0.4); Hematocrit 39.3 % (37.0-47.0); Hemoglobin 13.2 g/dL (12.2-16.2); Lymphocytes # 1.8 K/mm3 (0.7-4.5); Mean Corpuscular HGB Conc 33.6 g/dL (31.8-35.4); Mean Corpuscular Hemoglobin 30.6 pg (27.0-31.2); Mean Corpuscular Volume 91.1 fl (81-99); Mean Platelet Volume 9.2 fl (7.4-10.4); Monocytes # 0.3 K/mm3 (0.1-1.0); Monocytes % 5.5 % (1.7-9.3); Neutrophils % 56.6 % (37.0-80.0); Platelet Count 205 K/mm3 (142-424); Red Blood Count 4.31 M/mm3 (4.20-5.40); Red Cell Distribution Width 12.7 % (11.5-17.5); White Blood Count 5.2 K/mm3 (4.8-10.8)
[2023-08-06 13:06] LABS: Thyroid Stimulating Hormone < 0.02 uIU/mL (0.465-4.68)
[2023-08-06 13:10] LABS: Ferritin 133 ng/ml (6.24-137)
== END 2023-08-06 23:59 ==
LOC: LAB 11:41
PROVIDERS: PCP Physician Assistant; Visit Provider Physician Assistant
DX: R79.89 Other specified abnormal findings of blood chemistry (principal); D72.9 Disorder of white blood cells, unspecified
CPT/HCPCS: 36415; 82728; 84443; 85025

== ENCOUNTER 2024-01-10 07:28 | Day surgery (SDC) | payer BC, SELFPAY ==
[2024-01-08 14:03] VITALS: BMI 36.8
[2024-01-10] MEDS: LACTATED RINGERS 1000ML 1,000 ML 100 ML IV (07:42)
[2024-01-10 07:47] VITALS: BP 123/80; PULSE 66; RESP 16; TEMP 36.3; O2SAT 99
[2024-01-10 07:47] LABS: Urine Pregnancy, HCG Qual. Negative (Negative)
--- NOTE | 2024-01-10 08:06 | P.PNANES_ITS ---
[facility] Disclaimer: The information contained in this section may have been updated after the patient was seen, as this information can be updated by other users. Medical History Attention Deficit Hyperactivity Disorder (ADHD) BMI 40.0-44.9, adult Anxiety Depression Migraines Surgical History History of cholecystectomy History of section Family History Other No significant family history Social History Smoking Status: Never smoker second hand exposure: No alcohol intake: never substance use type: denies use current occupational status: other Travel in the last 8 weeks: None housing: house [facility] Anesthesia Checklist Patient Identification Patient Identification: Arm Band and Verbal (Name & ) Structural Data Admitted From: Home Planned Operative Procedure/s: Colonoscopy Consent for Planned Operative Procedure(s) Verified: Yes Verified Documents: Surgical Consent and History and Physical NPO Status Verified Time NPO: 00:00 Chart Verification Results Verified: HCG Additional verifications Anesthesia Reactions: No Airway Assessment Mallampati Score:: Class II C-Spine Mobility Assessed: Yes TMJ Mobility Assessed: Yes Dentition: Good Dentition Neurological Assessment Level of Consciousness: Awake Hx Seizures: No Numbness or tingling in extremities: No Anesthesia Plan Anesthesia Risk discussed: Yes Anesthesia Plan: Verified ASA Class: II Anesthesia Type: MAC
[2024-01-10 08:15] VITALS: O2SAT 100
--- NOTE | 2024-01-10 08:40 | HMH.SCOPE ---
Procedure: Date: 01/10/24 Patient Date of :: 1975 Procedure Performed:: Total colonoscopy to terminal ileum with polypectomy using biopsy Indications:: Patient is a 48-year-old female who presents for initial screening colonoscopy. She is adopted. Performing Provider:: Leonardo Kaplan MD Referring Provider:: Irma Royal Sedation:: MAC sedation Procedure:: Patient history was obtained and appropriate physical examination was performed. Patient's medications and allergies were reviewed. Informed consent was obtained after explaining the benefits, alternatives, and risks of the procedure including, but not limited to, bleeding, perforation, missed lesions, and adverse reaction to anesthesia medications. Patient was transported to endoscopy procedure room. Patient was connected to monitoring devices. Throughout the procedure the patient's blood pressure, pulse, and oxygen saturations were monitored continuously. Patient identification and planned procedure were verified by the staff. Patient was positioned in lateral decubitus position. Digital anorectal exam was performed. Variable stiffness Olympus colonoscope was inserted and advanced under direct visualization to the cecum. Adequacy of the colonic preparation was noted. The colonoscope was advanced a short distance into the terminal ileum. The colonoscope was then slowly withdrawn while carefully examining the color, texture, anatomy, and integrity of the mucosoa circumferentially. Within the rectum retroflexion was performed. Colonoscope was then withdrawn. Impression: At the hepatic flexure there was a diminutive but adenomatous appearing polyp removed with cold biopsy forceps. In the descending colon there was a possible early polyp, this was subtle. This was removed with biopsy forceps. . Findings:: Polyps as noted above Recommendations:: Repeat colonoscopy pending pathology. Given polyps likely 5 years. Complications:: None immediately apparent Estimated blood obtained (mL): 1 Colonoscopy Component Colonoscopy Component Was a colonoscopy performed during today's procedure?: Yes Recommended follow up colonoscopy of at least 10 years?: No If no, follow up colonoscopy recommended in ___ years?: 5 Reason for not recommending >/= 10 yr follow-up interval?: See above
[2024-01-10 08:42] VITALS: BP 109/80; PULSE 85; RESP 16; TEMP 36.8; O2SAT 99
[2024-01-10 08:52] VITALS: PULSE 69; RESP 16; O2SAT 99
[2024-01-10 09:02] VITALS: PULSE 70; RESP 16; O2SAT 100
[2024-01-10 09:11] VITALS: BP 121/93; PULSE 68; RESP 16; O2SAT 100
== END 2024-01-10 09:12 | disposition home or self-care (01) ==
PROVIDERS: PCP Physician Assistant; Visit Provider Surgery
PROC: 0DJD8ZZ Inspection of Lower Intestinal Tract, Via Natural or Artificial Opening Endoscopic (ICD-10-PCS; CPT 45380; principal; 2024-01-10 08:30)
DX: Z12.11 Encounter for screening for malignant neoplasm of colon (principal); D12.3 Benign neoplasm of transverse colon; K63.5 Polyp of colon
CPT/HCPCS: 45380; 81025; J7120

== ENCOUNTER 2024-02-28 08:05 | Emergency (ER) | payer BC, SELFPAY ==
[2024-02-28 08:15] VITALS: BP 133/79; PULSE 64; RESP 18; TEMP 36.6; O2SAT 98; BMI 40.4
--- NOTE | 2024-02-28 08:26 | ED_ITS ---
Discharge Plan Disposition Patient Disposition: Home, Self-Care Condition: Good Prescriptions Prescriptions: New benzonatate 100 mg capsule 100 mg PO TID PRN (Reason: cough) Qty: 30 0RF doxycycline hyclate 100 mg capsule 100 mg PO BID Qty: 20 0RF methylprednisolone [Medrol (Andres)] 4 mg tablets,dose pack See Rx Instructions .Route .COMPLEX 6 Days Qty: 21 0RF Rx Instructions: taper pack; guaifenesin [Mucinex] 600 mg tablet extended release 12hr 1,200 mg PO BID PRN (Reason: cough) Qty: 20 0RF No Action propranolol 40 mg tablet 40 mg PO DAILY methimazole 10 mg tablet 10 mg PO DAILY buspirone 7.5 mg tablet See Rx Instructions .ROUTE .COMPLEX Qty: 180 2RF Dose Instruction: TAKE ONE TABLET BY MOUTH TWICE A DAY *MAY CAUSE DROWSINESS* Rx Instructions: TAKE ONE TABLET BY MOUTH TWICE A DAY *MAY CAUSE DROWSINESS* Qelbree 200 mg capsule,extended release 24hr 200 mg PO DAILY Wegovy 0.5 mg/0.5 mL pen injector 0.5 mg SQ WEEKLY Referrals Follow up/Referrals: Irma Royal PA [Primary Care Provider] - See instructions Activity Restrictions/Add. Instructions Additional Instructions/Restrictions: *Monitor Temp, Over the counter Motrin or Tylenol as directed/as needed Tylenol every 4 hours and Motrin every 6 hours (as long as your family doctor has told you that you can take it) for fever or pain. and straight to ER if unable to lower temp less than 101.0 after medication given *Warm salt water gargles may help to soothe the throat *Throat Lozenges? *Warm fluids like tea with honey may help to soothe the throat? *Sleep elevated *Humidifier/Vaporizer Take medication as prescribed Follow up IMMEDIATELY for new or worsening symptoms or no Noticeable improvement over the next 48-72 hours. 911 for difficulty breathing or swallowing Clinical Impressions Clinical Impression: Sinusitis Instructions Patient Instructions: DI for Sinusitis, Sinusitis, Doxycycline Print Language Print Language: [place] Discharge ED Provider: Jami Couch [facility] General Stated complaint: cough, congestion Mode of Arrival: Ambulatory Source of Information: Patient Limitations: No Limitations Time Seen by Provider: 02/28/24 08:26 Description of Symptoms (Recalled from Triage Doc. by RN): PATIENT C/O COUGH, CONGESTION, DRAINAGE, AND NOT SLEEPING FOR OVER A WEEK HEENT Symptoms (Recalled from RN notes): Yes Resp Symptoms (Recalled from RN notes): Yes Skin Symptoms (Recalled from RN notes): No MS Symptoms (Recalled from RN notes): No Functional Status (Recalled from RN notes): WNL History of Present Illness Provider Complaint: Patient states that she has been sick for over a week States that she has been having sinus pain and pressure, cough, chest congestion and drainage states feels like it is trying to move into her chest States she has tried OTC medications but they havent helped Related Data Home Medications ?Medication ?Instructions ?Recorded ?Confirmed methimazole 10 mg tablet 10 mg PO DAILY 09/12/23 02/28/24 propranolol 40 mg tablet 40 mg PO DAILY 09/12/23 02/28/24 semaglutide (weight loss) 0.5 0.5 mg SQ WEEKLY 02/28/24 02/28/24 mg/0.5 mL subcutaneous pen injector (Wegovy) viloxazine 200 mg capsule,extended 200 mg PO DAILY 02/28/24 02/28/24 release 24 hr (Qelbree) Previous Rx's ?Medication ?Instructions ?Recorded buspirone 7.5 mg tablet See Rx Instructions .Route 01/09/24 .COMPLEX #180 tabs benzonatate 100 mg capsule 100 mg PO TID PRN cough #30 caps 02/28/24 doxycycline hyclate 100 mg capsule 100 mg PO BID #20 caps 02/28/24 guaifenesin 600 mg tablet, 1,200 mg (2 x 600 mg) PO BID PRN 02/28/24 extended release 12 hr (Mucinex) cough #20 tabs methylprednisolone 4 mg tablets in See Rx Instructions .Route 02/28/24 a dose pack (Medrol (Andres)) .COMPLEX 6 days #21 tabs Allergies Allergy/AdvReac Type Severity Reaction Status Date / Time Penicillins [PENICILLINS] Allergy Mild Hives Verified 01/10/24 07:44 sulfamethoxazole Allergy Mild Difficulty Verified 01/10/24 07:44 [From BACTRIM] Breathing trimethoprim [From BACTRIM] Allergy Mild Difficulty Verified 01/10/24 07:44 Breathing Worker's Comp Is this a Worker's Comp case?: No [facility] Disclaimer: The information contained in this section may have been updated after the patient was seen, as this information can be updated by other users. Medical History Attention Deficit Hyperactivity Disorder (ADHD) BMI 40.0-44.9, adult Anxiety Depression Migraines Surgical History History of cholecystectomy History of section Family History Other No significant family history Social History Smoking Status: Never smoker second hand exposure: No alcohol intake: never substance use type: denies use current occupational status: other Travel in the last 8 weeks: None housing: house ROS Obtained: Yes All systems reviewed & no additional complaints except as documented and Yes Systems reviewed as appropriate & no additional complaints except as documented Constitutional Constitutional: Reports system reviewed and no additional complaints, except as documented and Reports as per HPI ENT Ears, Nose, Mouth, and Throat: Reports system reviewed and no additional complaints, except as documented, Reports as per HPI, Reports sinus pain and Reports sinus pressure Cardiovascular Cardiovascular: Reports system reviewed and no additional complaints, except as documented and Reports as per HPI Respiratory Respiratory: Reports system reviewed and no additional complaints, except as documented, Reports as per HPI, Reports chest congestion and Reports cough Gastrointestinal Gastrointestingal: Reports system reviewed and no additional complaints, except as documented and as per HPI Physical Exam General General appearance: alert and in no apparent distress ENT ENT exam: Present mucous membranes moist Expanded ENT Exam Nose exam: Present sinus tenderness Throat exam: Present other (Pharyngeal erythema noted with PND) Respiratory Respiratory exam: Present normal lung sounds bilaterally; Absent respiratory distress or wheezes Cardiovascular Cardiovascular exam: Present regular rate, normal rhythm and normal heart sounds Abdominal Exam Abdominal exam: Present soft and normal bowel sounds; Absent distention or tenderness Neurological Exam Neurological exam: Present alert, oriented X3 and normal gait Medical Decision Making Medical Records Screening: Per USPSTF and CDC recommendations, given the prevalence of disease in our region, it is our hospital?s policy to screen for HIV and viral Hepatitis for all patients aged 18 and over and those with ongoing risk factors. Prince Inquiry Pt receiving controlled substance: No Prince was queried for this patient: No Vital Signs: 02/28/24 08:15 Temperature 97.9 F Temperature Source Oral Pulse Rate [Left Brachial] 64 Respiratory Rate 18 Blood Pressure [Left Arm] 133/79 Blood Pressure Mean [Left Arm] 97 Blood Pressure Source [Left Arm] Automatic Cuff Blood Pressure Position [Left Arm] Sitting 02 Sat by Pulse Oximetry 98 Oxygen Delivery Method Room Air
[2024-02-28 08:41] VITALS: BP 133/79; PULSE 64; RESP 18; TEMP 36.6; O2SAT 98
== END 2024-02-28 08:45 | disposition home or self-care (01) ==
PROVIDERS: Emergency Provider Nurse Practitioner; PCP Physician Assistant
DX: J32.9 Chronic sinusitis, unspecified (principal); R05.9 Cough, unspecified; R09.81 Nasal congestion
CPT/HCPCS: 99212; G0381

== ENCOUNTER 2024-08-13 15:40 | Outpatient (CLI) | payer BC, SELFPAY ==
[2024-08-13 16:20] LABS: Hematocrit 39.2 % (37.0-47.0); Hemoglobin 13.5 g/dL (12.2-16.2); Mean Corpuscular HGB Conc 34.4 g/dL (31.8-35.4); Mean Corpuscular Hemoglobin 30.8 pg (27.0-31.2); Mean Corpuscular Volume 89.3 fl (81-99); Nucleated Red Blood Cells # 0 10^3/uL; Nucleated Red Blood Cells % 0 %; Platelet Count 218 K/mm3 (142-424); Red Blood Count 4.39 M/mm3 (4.20-5.40); Red Cell Distribution Width 11.9 % (11.5-17.5); Red Cell Distribution Width-SD 38.6 fL; White Blood Count 6.3 K/mm3 (4.8-10.8)
[2024-08-13 17:32] LABS: Alanine Aminotransferase 44 U/L (12-78); Albumin Level 4.3 g/dl (3.5-5.0); Albumin/Globulin Ratio 1.5 (1.1-1.8); Alkaline Phosphatase 88 U/L (38-126); Anion Gap 12.9 mEq/L (5-15); Aspartate Amino Transferase 31 U/L (14-36); Bilirubin,Total 0.4 mg/dl (0.2-1.3); Blood Urea Nitrogen 10 mg/dl (7-17); Calcium 9.3 mg/dl (8.4-10.2); Carbon Dioxide 28 mmol/L (22.0-30.0); Chloride 100 mmol/L (98-107); Estimated Glomerular Filt Rate 76 ml/min (>60); GFR (African American) 92 ML/MIN (>60); Globulin 2.8 g/dL (1.3-3.2); Glucose 89 mg/dl (74-100); Potassium 3.9 mmoL/L (3.5-5.1); Sodium 137 mmol/L (136-145); Total Protein,Serum 7.1 g/dl (6.3-8.2)
[2024-08-13 17:49] LABS: Free T4 (Free Thyroxine) 1.26 ng/dl (0.78-2.19)
[2024-08-14 08:13] LABS: Triiodothyronine (T3) Free 2.8 pg/mL (2.0-4.4)
== END 2024-08-13 23:59 | disposition home or self-care (01) ==
LOC: LAB 15:41
PROVIDERS: PCP Physician Assistant; Visit Provider Student in an Organized Health Care Education/Training Program
DX: E05.00 Thyrotoxicosis with diffuse goiter without thyrotoxic crisis or storm (principal)
CPT/HCPCS: 36415; 80053; 84439; 84443; 84481; 85027

== ENCOUNTER 2024-09-21 10:05 | Outpatient (CLI) | payer BC, SELFPAY ==
--- OUTSIDE RECORDS SUMMARY | 2024-09-21 10:08 | XMS_ITS | Data Portability ---
Author Organization [facility] HANG Khan ADMIN Address [address] [place] [address] Care Team Providers Care Summer Child Caregiver Name Role Phone SMITH SINHA Primary Care Provider Assessment No assessment recorded. Plan of Treatment Reminders Order Date Submit Date Provider Last Modified By Organization Details Last Modified Time Details Appointments None recorded. Lab CBC w/ auto diff 2022 023 [email or web address] [facility], [address], [address], [place], [address], 3 20:10:49 CMP, serum or plasma 2022 023 [email or web address] [facility], [address], [address], [place], [address], 3 20:10:49 HbA1c (hemoglobin A1c), blood 2022 023 [facility], [address], [address], [place], [address], 3 20:10:49 iron + TIBC + ferritin, serum 2022 023 [email or web address] [facility], [address], [address], [place], [address], 3 20:10:49 vitamin D, 25-hydroxy, total, serum 2022 023 [email or web address] [facility], [address], [address], [place], [address], 3 20:10:50 vitamin A (retinol), serum 2022 023 [email or web address] [facility], [address], [address], [place], [address], 3 20:10:50 vitamin E, serum 2022 023 [email or web address] [facility], [address], [address], [place], [address], 3 20:10:50 PTH (parathyroi d hormone), intact, serum or plasma 2022 023 [email or web address] [facility], [address], [address], [place], [address], 3 20:10:50 lipid panel, serum 2022 023 [email or web address] [facility], [address], [address], [place], [address], 3 20:10:50 TSH + free T4, serum 2022 023 [email or web address] [facility], [address], [address], [place], [address], 3 20:10:50 folate, serum 2022 023 [email or web address] [facility], [address], [address], [place], [address], 3 20:10:50 methylmalon ate, QN, serum or plasma 2022 023 [email or web address] [facility], [address], [address], [place], [address], 3 20:10:51 thiamine, QN, blood 2022 023 [facility], [address], [address], [place], [address], 3 20:10:51 Referral None recorded. Procedures None recorded. Surgeries esophagogas troduodenos copy (SURG) 2022 023 [email or web address] Cristino Cordero MD, [address], [address], [place], [address], 4 13:44:44 Imaging XR, chest, 2 view 2022 023 [facility] ([facility] Sched[facility]), [address], [place], [address], 3 12:32:52 electrocard iogram, routine ECG, 12 leads min 2022 023 Not available 3 20:09:33 Medication Orders None recorded. Patient TargetsNo targets recorded. Patient InstructionsNo instructions recorded. Reason for Referral None Reported. Results Created Date Observation Date Name Description Value Unit Range Abnormal Flag Note LastModifiedBy Organization Detail LastModifiedTime 11/23/1911/22/2022 [facility] [address] [place] [address] Phone: Fax: Name: JESSICA ROMERO Exam Date: 11/23/19 23 : 975 Age 47 Gender : F Access ion: [id number] Physic chris: SIZEMO RE, EDWARD Facili ty: [facility] Facili ty HSV: Outpat ient Exam: CHEST 2 VIEWS CHEST, 2 views HISTOR Y: Preope rative exam for respir atory cleara nce. COMPAR WINSTON: None. FINDIN GS: The lungs are clear. There is no eviden ce of effusi on or other pleura l diseas e. The medias tinum has a normal appear ance. The cardia c silhou ette is unrema rkable . IMPRES MIRIAM: No acute cardio pulmon danielle proces s. Dictat ed By: Melani Powell Transc ribed By: Melani Sawyer Transc ribed On: 11/23/19 12:20 PM Electr onical ly signed by: Melani Powell 11/23/19 Thank you for referr JESSICA Costa to [facility]. Legall y authen ticate d by NEFTALI CAMERON 11-22 12:20: 56 CC'ed Logic: Orderi ng Provid er: SIZEMO RE EDWARD Attend ing Provid er: SIZEMO RE EDWARD Admitt ing Provid er: SIZEMO RE EDNATTY [email or web address] [facility] [address], [place], [address], 11/22/2022 13:49:04 Result Notes None recorded. Problems Name Problem SNOMED Code Status Onset Date Resolution Date Notes Provider Name and Address Organization Details Recorded Time Anxiety 76937929 Active 2022 Raimundo Solorio DNP, CREATIVE SERVICES DIRECTOR, ACREAGE REPORTER-C [address], [place], [address] , [place] - [facility] - [place] & [place] 3 08:32:06 Morbid obesity 621495112 Active 2022 Raimundo Solorio DNP, CREATIVE SERVICES DIRECTOR, ACREAGE REPORTER-C [address] , [place], [address] , [place] - [facility] - [place] & [place] 3 08:32:12 Unintentio nal weight gain 9056313589611 04 Active 2022 Raimundo Solorio DNP, CREATIVE SERVICES DIRECTOR, ACREAGE REPORTER-C [address] , [place], [address] , [place] - [facility] - [place] & [place] 3 08:32:18 Disorder of function of stomach 576159138 Active 2022 Raimundo Solorio, DNP, CREATIVE SERVICES DIRECTOR, ACREAGE REPORTER-C [address], [place], [address] , [facility] & [place] 08:32:26 Problem Notes None recorded. Procedures Surgical History Date Name Laterality Status Provider Name and Address Organization Details Recorded Time cholecystectomy completed Marissayareli Blanton [facility] & [place] 11/14/2022 11:25:10 section completed Marissa Blanton [facility] & [place] 11/14/2022 11:25:39 extraction of wisdom tooth completed Marissashayla Blanton [facility] & [place] 11/14/2022 11:25:45 destruction of lesion completed DARBY Ni [address], [place], [address], [facility] & [place] 11/22/2022 11:06:51 Carpal Tunnel Surgery completed Marissa Blanton [facility] & [place] 11/22/2022 08:08:34 Imaging Results None recorded. Procedure Notes None recorded. Medical Equipment None Reported. Allergies Allergen ID Allergen Name Allergen Category Reaction Reaction Severity Criticality Documentation Date Start Date Code Code System Note Provider Name and Address Organization Details Recorded Time 64537 Product containin g penicilli n (product) medicatio n hives moderate Not available 11/14/2022 13642 8001 SNOMED Leonardo Sorenson alessio [facility] & [place] 3 09:59:47 90180 Bactrim medicatio n anaphylax is severe Not available 11/14/2022 53113 9 RxNorm Leonardo Sorenson alessio [facility] & [place] 3 09:59:47 00704 red dye food,medi cation vomiting moderate Not available 11/14/2022 54882 UNK Leonardo Delta mccallum [facility] & [place] 3 09:59:47 59293 cow milk allergeni c extract food,medi cation diarrhea moderate Not available 11/14/2022 70049 5 RxNorm Leonardo mccallum [facility] & [place] 3 09:59:47 Medications Name Sig Start Date Stop Date Status Note LastModified by Organization Details LastModified Time Adderall 20 mg tablet Take 1 tablet every day by oral route. active Not Available Not Available No t Available azithromycin 250 mg tablet 11/22 completed Not Available Not Available Not Available prednisone 20 mg tablet 11/22 completed Not Available Not Available Not Available dextroampheta mine-amphetam ine 10 mg tablet 11/22 completed Not Available Not Available Not Available Adderall XR 20 mg capsule,exten ded release 11/22 completed Not Available Not Available Not Available buspirone 7.5 mg tablet Take 1 tablet twice a day by oral route. active Not Available Not Available No t Available Vitamin D2 1,250 mcg (50,000 unit) capsule active Not Available Not Available Not Available Vitamin D3 25 mcg (1,000 unit) capsule Take by oral route. active Not Available Not Available No t Available moxifloxacin 0.5 % eye drops 11/22 completed Not Available Not Available Not Available bupropion HCl XL 300 mg 24 hr tablet, extended release 11/22 completed Not Available Not Available Not Available bupropion HCl XL 150 mg 24 hr tablet, extended release 11/22 completed Not Available Not Available Not Available QuickVue At-Home COVID-19 Test kit active Not Available Not Available Not Available Vitals Date Recorded Body height Body mass index (BMI) Body weight Body temperature Heart rate Systolic blood pressure Diastolic blood pressure Provider Name and Address Organization Details Last Updated DateTime 3 160.02 cm 40.3 kg/m2 501300. 26 g 97.1 [degF] 84 /min 133 mm[Hg] 91 mm[Hg] Marissa Harvinder [facility] & [place] 3 08:09:47 Social History None recorded. Functional Status Question Answer Note LastModified by Organizat ion Details LastModified Time Do you use any illicit or recreational drugs? No [email or web address] Information not available 11/14/2022 What is your level of alcohol consumption? 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 Family History Nothing Reported. Medical History Condition Response ADD/ADHD Y Diabetes N Anxiety Disorder Y Heart Problems N Muscle, Joint, or Bone Problems Y High Cholesterol N Liver Disease N Heart Disease N Pulmonary Embolism N Headaches Y Hypertension Y GI Problems Y Depression Y Kidney Disease N Gynecological HistoryNo gynecological history recorded. Obstetrics History GPAL:G 0 P 0 0 0 0 Past Encounters Encounter ID Performer Location Encounter Start Date Encounter Closed Date Diagnosis/Indication Diagnosis SNOMED-CT Code Diagnosis ICD10 Code Diagnosis Note [id number] [facility] [address] [place] [address] 11/22/2022 07:52:44 11/22/2022 11:18:51 Obesity 974671914 E66.9 The patient will be scheduled for the following. Initial intake lab work, cardiac clearance, and EGD. All risks complicati ons and alternativ es of the upper endoscopy were discussed with the patient and agreed upon. These include but are not limited to, over sedation, bleeding, perforatio n. Patient will be educated by the surgical weight loss team regarding if any medical managed weight loss will be required and they will follow this according to their recommenda tions. patient will follow-up in office after all testing has been completed Anxiety 85450744 F41.9 Disorder o f function of stomach 343960790 K31.89 Morbid obesity 742800188 E66.01 Health Concerns Section Related Observation LastModified by Organization Detai ls LastModified Time None Recorded Concern Status LastModified by Organization Details LastModified Time None Recorded Advance Directives Directive None Recorded Payers Insurance Date Sequence Insurance Name Policy Number Policy Jeffers Covered Member ID Jeffers Member ID Guarantor Name 11/22/2022 1 [place] [id number] Jessica H Canupp [id number] Jessica Canupp Notes Date Note Type Note Provider Name and Address Organization Details Recorded Time 11/22/2022 text/html Patient presents today for the initial evaluation with an interest in bariatric surgery. Patients first choice for bariatric surgery is Sleeve gastrectomyPt has been overweight most of their life. Has been 100lbs or more over weight for 10 years. Pt reports dyspnea joint pain and mobility issues related to excess weight.The pt is pursuing weight loss surgery because excess weight directly contributes to comorbidities including anxietyDiets include calorie counting high protein/low carb diet. Pt site physical hunger and boredom as prompts to eat. Struggles with portion size. DIET HX:The patient states that they have been overweight since adolescenceThe patient states that they have been 100 lbs or more overweight 30 years.The patient started dieting at the age of 11Dieting methods that have been most successful in losing weight are WWThe most weight ever lost on a single dieting attempt was 17lbs and this was maintained until 6 monthsThe patient has attempted the following unsupervised diet attempts calorie counting, high protein, meal replacements, fastingThe Patient has followed the following supervised diet attempts WWThe following OTC or prescribed medications have been utilized for weight loss noneBehavior treatments for weight loss that have been attempted in the past were noneThe patient has utilized the following modes of exercise to help with weight loss walkingThe patient has not use self induced behaviors to help them lose weight in the past.Currently the patient admits to an eating history of skipping meals, snacking in the day and evening.The patient feels that the majority of their meals are prepared at home.Common triggers for causing the patient to overeat are anxiousness, boredom. DARBY Ni [address], [place], [address], [facility] - [place] & [place] 11/22/2022 11:52:40 OBGyn Episode No OBEpisode recorded.
[2024-09-21] MEDS: BARIUM SULFATE(READI-CAT2);450ML BOTTLE 450 ML PO (10:40)
[2024-09-21] MEDS: SODIUM CHLORIDE 0.9% 10ML SYR (RAD ONLY) 10 ML IV (10:40)
[2024-09-21] MEDS: IOPAMIDOL-370 (76%);100ML BOTTLE 75 ML IV (10:41)
--- NOTE | 2024-09-21 10:45 | CT_ITS ---
FINAL REPORT TECHNIQUE: Thin section axial images are obtained through the abdomen and pelvis after intravenous contrast. Reconstruction images were obtained from the axial data. Exam was performed using dose reduction techniques. CLINICAL HISTORY: Hereditary Hemochromatosis COMPARISON: 11/2016 FINDINGS: LUNG BASES: Lung bases are clear. Heart size is normal. LIVER: Mild fatty infiltration. No focal lesion. GALLBLADDER/BILIARY SYSTEM: Gallbladder is absent. No biliary dilatation. SPLEEN: Unremarkable. PANCREAS: Unremarkable. ADRENALS: Unremarkable. KIDNEYS/URETERS/BLADDER: No hydronephrosis, renal mass, or renal stone. Unremarkable urinary bladder. GI TRACT: No small bowel obstruction or dilatation. Wall thickening of the descending colon, favor incomplete distention. Normal appendix. No acute colon abnormality. PELVIC ORGANS: Uterus unremarkable. There is a right adnexal cyst measuring 6.7 x 5.4 cm, favor functional ovarian cyst. LYMPH NODES/RETROPERITONEUM/MESENTERY: No lymphadenopathy. No abdominal aortic aneurysm. ABDOMINAL WALL: The abdominal wall is intact. FREE FLUID: No ascites. BONES: No acute osseous abnormality. IMPRESSION: 6.7 cm right adnexal cyst, favor functional cyst. Recommend 6-10-week follow-up ultrasound to evaluate for expected regression. Reviewed, Interpreted and Dictated by Lori Sauer MD Transcribed by Lisa Anderson Authenticated and [facility]
== END 2024-09-21 23:59 | disposition home or self-care (01) ==
LOC: RAD 10:06
PROVIDERS: PCP Physician Assistant; Visit Provider Internal Medicine Medical Oncology
DX: N83.8 Other noninflammatory disorders of ovary, fallopian tube and broad ligament (principal); E83.110 Hereditary hemochromatosis; R79.89 Other specified abnormal findings of blood chemistry
CPT/HCPCS: 74177; Q9967

== ENCOUNTER 2024-11-09 07:14 | Outpatient (CLI) | payer BC, SELFPAY ==
--- OUTSIDE RECORDS SUMMARY | 2024-10-27 09:20 | XMS_ITS | Encounter Summary ---
Author Organization Healthcare Address [address] [place] [address] Care Team Providers Care Christian [employer] Nurse Name Role Phone Irma Royal Primary Care Provider [phone] Reason for Referral * Consultation (Routine) - Authorized Specialty Diagnoses / Procedures Referred By Contkaterin t Referred To Contact Diagnoses Graves disease Tachycardia Obesity (BMI 30-39.9) Sindhu Blanton DO [address] [address] Phone: tel: fax: Referral ID Status Reason Start Date Expiration Date V isits Requested Visits Authorized [id number] Authorized 10/27/2024 04/28/2026 1 1 Reason for Visit * Reason Comments Graves' Disease Encounter Details Date Type Department Care Team ([facility] Contact Info) Description 10/27/2024 9:20 AM EDT Office Visit [facility] Endocrinology [address] [place] [address] Sindhu Blanton DO [address] [address] Graves disease (Primary Dx); Tachycardia; Obesity (BMI 30-39.9) Social History Tobacco Use Types Packs/Day Years Used Date Smoking Tobacco: Never Smokeless Tobacco: Never Tobacco Cessation:Counseling Given: Not Answered Alcohol Use Standard Drinks/Week Comments Never 0 (1 standard drink = 0.6 oz pur e alcohol) Comments No Sex and Gender Information Value Date Recorded Sex Assigned at Female 08/15/2023 4:45 PM EDT Legal Sex Female 3:01 PM EDT Gender Identity Female 08/15/2023 4:45 PM EDT Sexual Orientation Not on file documented as of this encounter Last Filed Vital Signs Vital Sign Reading Time Taken Comments Blood Pressure 113/76 10/27/2024 9:18 AM EDT Pulse 67 10/27/2024 9:18 AM EDT Temperature - - Respiratory Rate - - Oxygen Saturation - - Inhaled Oxygen Concentration - - Weight 98.3 kg (216 lb 11.4 oz) 10/27/2024 9:18 AM EDT Height 160 cm (5' 3 ) 10/27/2024 9:18 AM EDT Body Mass Index 38.39 10/27/2024 9:18 AM EDT documented in this encounter Miscellaneous Notes * Progress Notes - Jerry Kaplan, - 10/27/2024 9:20 AM EDT Established Patient Visit [facility] Chief Complaint: Graves Disease Subjective HPI Ms. Greenberg is here today for a follow up visit for graves disease. She is doing well. Methimazole was stopped in 05/2024. Propranolol 30 mg, 3x daily and continuing totitrate. Recently diagnosed with hemochromatosis in 07/2024. Significant weight loss, generalized fatigue andmetallic taste. 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 Using therapeutic phelobotomy for treatment and feeling significantly better. Thyroid Last Visit: 03/13/24 Diagnosis: Graves Disease Diagnosis Date: 07/2023 Current Medications: None (only Propranolol for palpitations) Compliance: NA Other Treatments: Stopped Methimazole in May Most Recent thyroid labs: Lab Results Component Value Date TSH 1.24 10/19/2024 FREET4 1.3 10/19/2024 Thyroid Imaging: NA Thyroid Antibody Testing: Thyroid Peroxidase Antibody Date Value Ref Range Status 08/30/2023 174 (H) <=8 IU/mL Final Family History: Adopted so unsure Radiation History: None Thyroid Surgery Hx: None Medications Ordered Prior to Encounter[1] Allergies[2] All medications have been reviewed today. The following portions of the patient's chart were reviewed in this encounter and updated as appropriate: past medical history, surgical history, family history, tobacco history, allergies, and medications Review of Systems Constitutional: Negative for fatigue. Respiratory: Negative for shortness of breath. Cardiovascular: Negative for chest pain and leg swelling. Gastrointestinal: Negative for constipation and diarrhea. Genitourinary: Negative for dysuria. Neurological: Negative for weakness. Objective Vitals: 10/27/24 0918 BP: 113/76 Pulse: 67 Physical Exam Constitutional: Appearance: Normal appearance. Cardiovascular: Rate and Rhythm: Normal rate and regular rhythm. Pulmonary: Effort: Pulmonary effort is normal. Breath sounds: Normal breath sounds. Musculoskeletal: Right lower leg: No edema. Left lower leg: No edema. Neurological: General: No focal deficit present. Mental Status: She is alert and oriented to person, place, and time. Psychiatric: Mood and Affect: Mood normal. Behavior: Behavior normal. Assessment/Plan Jessica was seen today for graves' disease. Diagnoses and all orders for this visit: Graves disease (Primary) - Follow Up [facility]; Future - TSH; Future - T4, free; Future - CBC and differential; Future - Comprehensive metabolic panel; Future Tachycardia - Follow Up [facility]; Future - TSH; Future - T4, free; Future - CBC and differential; Future - Comprehensive metabolic panel; Future Obesity (BMI 30-39.9) - Follow Up [facility]; Future Graves Disease -Diagnosed in 08/2023 -TSH receptor antibodies were positive -methimazole was stopped in 05/2024 and propranolol 30 mg, 3x daily -Labs on 10/19/24 and showed normal TSH, fT4, T3 and normal CBC -patient appears to be in remission, review of initial TSH receptor antibodies shows mildly elevated result of 5.44 PLAN: -Discussed that she is currently in remission from Graves disease and does not need Methimazole -Will check TSH and FT4 in 6 months to ensure remain normal -Order CBC and CMP in case she does need to resume thionamide therapy -Reviewed signs and symptoms of hyperthyroidism and if she develops these, to notify clinic and we can check labs sooner as she could have recurrence Tachycardia -Improved -She has been decreasing Propranolol dose to 30 mg TID -HR 67 today PLAN: -Continue to titrate Propranolol and hopeful she will be able to discontinue completely in the future Obesity -BMI 38.39 -No longer on Wegovy due to GI side effects -Continue lifestyle modifications RTC in 6 months Jerry Kaplan DO [1] Current Outpatient Medications on File Prior to Visit Medication Sig Dispense Refill busPIRone (Buspar) 7.5 MG tablet .COMPLEX cholecalciferol (Vitamin D-3) 25 MCG (1000 UT) capsule Take by mouth. desvenlafaxine (Pristiq) 50 MG 24 hr tablet Take 1 tablet by mouth daily. ergocalciferol 1.25 MG (10932 UT) capsule Multiple Vitamin (multivitamin) tablet Take 1 tablet by mouth 1 (one) time each day. propranolol (Inderal) 20 MG tablet TAKE 2 AND 1/2 TABLETS BY MOUTH THREE TIMES DAILY 225 tablet 0 Qelbree 200 MG capsule sustained-release 24 hr TAKE TWO CAPSULES BY MOUTH EVERY DAY DIRECTED FORadhd atomoxetine (Strattera) 80 MG capsule Take 1 capsule (80 mg) by mouth 1 (one) time each day. (Patient not taking: Reported on 10/27/2024) methIMAzole (Tapazole) 5 MG tablet Take 1 tablet (5 mg) by mouth 1 (one) time each day. (Patient not taking: Reported on 10/27/2024) 30 tablet 5 Wegovy 0.5 MG/0.5ML solution auto-injector INJECT THE CONTENTS OF 1 PEN (0.5 MG / 0.5ML) SUBCUTANEOUSLY ONCE A WEEK DIRECTED (Patient not taking: Reported on 10/27/2024) No current facility-administered medications on file prior to visit. [2] Allergies Allergen Reactions Sulfa Drugs Itching, Nausea, Rash and Shortness of breath Sulfamethoxazole Anaphylaxis Sulfamethoxazole-Trimethoprim Anaphylaxis Milk (Cow) Diarrhea Penicillins Hives and Rash Red Dye #17 (Britton Red) Vomiting Red Dye #40 (Allura Red) Vomiting Penicillin G Rash Trimethoprim Other - please document in the comment field Cosigned by Sindhu Blanton DO at 10/27/2024 4:00 PM EDT Associated attestation - Sindhu Blanton DO - 10/27/2024 4:00 PM EDT I saw and evaluated the patient with the resident/fellow. I discussed the case with the resident/fellow and agree with the findings and plan as documented. documented in this encounter Plan of Treatment Upcoming Encounters Date Type Department Care Team (Late st Contact Info) Description 05/05/2025 4:20 PM EST [facility] [address] [place] [address] Sindhu Blanton DO [address] [facility] [address] [place] [address] Scheduled Orders Name Type Priority Associated Diagnoses Orde r Schedule TSH Lab Routine Graves disease Tachycardia Expected: 04/29/2025 (Approximate), Expires: 04/30/2026 T4, free Lab Routine Graves disease Tachycardia Expected: 04/29/2025 (Approximate), Expires: 04/30/2026 CBC and differential Lab Routine Graves disease Tachycardia Expected: 04/29/2025 (Approximate), Expires: 04/30/2026 Comprehensive metabolic panel Lab Routine Graves disease Tachycardia Expected: 04/29/2025 (Approximate), Expires: 04/30/2026 Scheduled Referrals Name Type Priority Associated Diagnoses Orde r Schedule Follow Up [facility] Outpatient Referral Routine Graves disease Tachycardia Obesity (BMI 30-39.9) Expected: 04/29/2025, Expires: 04/30/2026 documented as of this encounter Visit Diagnoses Diagnosis Graves disease- Primary Toxic diffuse goiter without mention of thyrotoxic crisis or storm Tachycardia Unspecified tachycardia Obesity (BMI 30-39.9) documented in this encounter Additional Health Concerns Assessment Noted Time A fall risk assessment has been complete d for the patient 10/30/2023 9:39 AM EDT A Body Mass Index follow-up plan has been documented for the patient 10/27/2024 4:00 PM EDT documented as of this encounter Care Teams [employer] Nurse Relationship Specialty Start Date End Date Irma Royal PA [address] [place] [address] PCP - General 08/15/23 documented as of this encounter
--- OUTSIDE RECORDS SUMMARY | 2024-11-09 07:17 | XMS_ITS | Encounter Summary ---
Author Organization Healthcare Address [address] [place] [address] Care Team Providers Care Jute Bag Cutting Machine Operator Name Role Phone Irma Royal Primary Care Provider [phone] Reason for Visit * Reason Comments Med Refill Encounter Details Date Type Department Care Team (Late st Contact Info) Description 09/16/2024 Refill [facility] [address] [place] [address] Sindhu Blanton, DO [address] [facility] [address] [place] [address] Graves disease; Tachycardia Social History Tobacco Use Types Packs/Day Years Used Date Smoking Tobacco: Never Smokeless Tobacco: Never Alcohol Use Standard Drinks/Week Comments Never 0 (1 standard drink = 0.6 oz pur e alcohol) Comments No Sex and Gender Information Value Date Recorded Sex Assigned at Female 08/15/2023 4:45 PM EDT Legal Sex Female 3:01 PM EDT Gender Identity Female 08/15/2023 4:45 PM EDT Sexual Orientation Not on file documented as of this encounter Miscellaneous Notes * Telephone Encounter - Gabby Bojorquez PharmD - 09/16/2024 1:07 PM EDT 1 medication(s) has been approved per protocol. documented in this encounter Plan of Treatment Upcoming Encounters Date Type Department Care Team (Late st Contact Info) Description 05/05/2025 4:20 PM EST [facility] [address] [place] [address] Sindhu Blanton DO [address] [facility] [address] [place] [address] documented as of this encounter Visit Diagnoses Diagnosis Graves disease Toxic diffuse goiter without mention of thyrotoxic crisis or storm Tachycardia Unspecified tachycardia documented in this encounter Additional Health Concerns Assessment Noted Time A fall risk assessment has been complete d for the patient 10/30/2023 9:39 AM EDT A Body Mass Index follow-up plan has been documented for the patient 03/13/2024 10:27 AM EST documented as of this encounter Care Teams Jute Bag Cutting Machine Operator Relationship Specialty Start Date End Date Irma Royal PA [address] [place] [address] PCP - General 08/15/23 documented as of this encounter
--- OUTSIDE RECORDS SUMMARY | 2024-11-09 07:17 | XMS_ITS | Encounter Summary ---
Author Organization Healthcare Address [address] [place] [address] Care Team Providers Care Filter Filler Name Role Phone Irma Royal Primary Care Provider [phone] Encounter Details Date Type Department Care Team (Latest Contact Info) Description 10/26/2024 Travel Social History Tobacco Use Types Packs/Day Years [...] on file documented as of this encounter Plan of Treatment Upcoming Encounters Date Type Department Care Team (Late st Contact Info) Description 05/05/2025 4:20 PM EST Office Visit [facility] [address] [place] [address] Sindhu Blanton, DO [address] [place] [address] documented as of this encounter Visit Diagnoses Not on filedocumented in this encounter Additional Health Concerns Assessment Noted Time A fall risk assessment has been complete d for the patient 10/30/2023 9:39 AM EDT A Body Mass Index follow-up plan has been documented for the patient 03/13/2024 10:27 AM EST documented as of this encounter Care Teams Filter Filler Relationship Specialty Start Date End Date Irma Royal PA [address] [place] [address] PCP - General 08/15/23 documented as of this encounter
--- OUTSIDE RECORDS SUMMARY | 2024-11-09 07:17 | XMS_ITS ---
Author Organization Unknown Medications Medication Instructions Effective Dates (start - stop) Status amphetamine aspartate 2.5 MG / amphetamine sulfate 2.5 MG / dextroamphetamine saccharate 2.5 MG / dextroamphetamine sulfate 2.5 MG Oral Tablet [id number]:00:00.000+00: 00 - Completed amphetamine aspartate 2.5 MG / amphetamine sulfate 2.5 MG / dextroamphetamine saccharate 2.5 MG / dextroamphetamine sulfate 2.5 MG Oral Tablet [id number]:00:00.000+00: 00 - Completed 24 HR amphetamine aspartate 5 MG / amphetamine sulfate 5 MG / dextroamphetamine saccharate 5 MG / dextroamphetamine sulfate 5 MG Extended Release Oral Capsule [Adderall] [id number]:00:00.000+00: 00 - Completed amphetamine aspartate 2.5 MG / amphetamine sulfate 2.5 MG / dextroamphetamine saccharate 2.5 MG / dextroamphetamine sulfate 2.5 MG Oral Tablet [id number]:00:00.000+00: 00 - Completed amphetamine aspartate 2.5 MG / amphetamine sulfate 2.5 MG / dextroamphetamine saccharate 2.5 MG / dextroamphetamine sulfate 2.5 MG Oral Tablet [id number]:00:00.000+00: 00 - Completed 24 HR amphetamine aspartate 5 MG / amphetamine sulfate 5 MG / dextroamphetamine saccharate 5 MG / dextroamphetamine sulfate 5 MG Extended Release Oral Capsule [Adderall] [id number]:00:00.000+00: 00 - Completed amphetamine aspartate 2.5 MG / amphetamine sulfate 2.5 MG / dextroamphetamine saccharate 2.5 MG / dextroamphetamine sulfate 2.5 MG Oral Tablet [id number]:00:00.000+00: 00 - Completed amphetamine aspartate 2.5 MG / amphetamine sulfate 2.5 MG / dextroamphetamine saccharate 2.5 MG / dextroamphetamine sulfate 2.5 MG Oral Tablet [id number]:00:00.000+00: 00 - Completed amphetamine aspartate 5 MG / amphetamine sulfate 5 MG / dextroamphetamine saccharate 5 MG / dextroamphetamine sulfate 5 MG Oral Tablet [id number]:00:00.000+00: 00 - Completed amphetamine aspartate 5 MG / amphetamine sulfate 5 MG / dextroamphetamine saccharate 5 MG / dextroamphetamine sulfate 5 MG Oral Tablet [id number]:00:00.000+00: 00 - Completed 24 HR amphetamine aspartate 5 MG / amphetamine sulfate 5 MG / dextroamphetamine saccharate 5 MG / dextroamphetamine sulfate 5 MG Extended Release Oral Capsule [Adderall] [id number]:00:00.000+00: 00 - Completed 24 HR amphetamine aspartate 5 MG / amphetamine sulfate 5 MG / dextroamphetamine saccharate 5 MG / dextroamphetamine sulfate 5 MG Extended Release Oral Capsule [Adderall] [id number]:00:00.000+00: 00 - Completed amphetamine aspartate 5 MG / amphetamine sulfate 5 MG / dextroamphetamine saccharate 5 MG / dextroamphetamine sulfate 5 MG Oral Tablet [id number]:00:00.000+00: 00 - Completed amphetamine aspartate 2.5 MG / amphetamine sulfate 2.5 MG / dextroamphetamine saccharate 2.5 MG / dextroamphetamine sulfate 2.5 MG Oral Tablet [id number]:00:00.000+00: 00 - Completed 24 HR amphetamine aspartate 5 MG / amphetamine sulfate 5 MG / dextroamphetamine saccharate 5 MG / dextroamphetamine sulfate 5 MG Extended Release Oral Capsule [Adderall] [id number]:00:00.000+00: 00 - Completed amphetamine aspartate 2.5 MG / amphetamine sulfate 2.5 MG / dextroamphetamine saccharate 2.5 MG / dextroamphetamine sulfate 2.5 MG Oral Tablet [id number]:00:00.000+00: 00 - Completed 24 HR bupropion hydrochlorid e 300 MG Extended Release Oral Tablet [id number]:00:00.00 0+00: 00 - Completed 24 HR bupropion hydrochlorid e 150 MG Extended Release Oral Tablet [id number]:00:00.00 0+00: 00 - Completed 24 HR bupropion hydrochlorid e 150 MG Extended Release Oral Tablet [id number]:00:00.00 0+00: 00 - Completed - [id number]:00 :00.000+00: 00 - Completed buspirone hydrochloride 7.5 MG Oral Tablet [id number]:00:00.000+00: 00 - Completed buspirone hydrochloride 7.5 MG Oral Tablet [id number]:00:00.000+00: 00 - Completed moxifloxacin 5 MG/ML Ophthal malcolm Solution [id number]:00:00.000+00: 00 - Completed buspirone hydrochloride 7.5 MG Oral Tablet [id number]:00:00.000+00: 00 - Completed ergocalciferol 1.25 MG Oral Capsule [id number]:00:00.000+00: 00 - Completed ergocalciferol 1.25 MG Oral Capsule [id number]:00:00.000+00: 00 - Completed {6 (azithromycin 250 MG Oral Tablet) } Pack [id number]:00:00.000+00: 00 - Completed {6 (azithromycin 250 MG Oral Tablet) } Pack [id number]:00:00.000+00: 00 - Completed prednisone 20 MG Oral Tablet 202 06-21-07:00:00.000+00: 00 - Completed prednisone 20 MG Oral Tablet 06-02-26T:00:00.000+00: 00 - Completed Patient Care team information Name Category Status Period Participants - - Proposed period not known -
--- OUTSIDE RECORDS SUMMARY | 2024-11-09 07:17 | XMS_ITS | Encounter Summary ---
Author Organization Healthcare Address [address] [place] [address] Care Team Providers Care Research And Development Manager Name Role Phone Irma Royal Primary Care Provider [phone] Reason for Visit * Reason Comments Med Refill Encounter Details Date Type Department Care Team (Late st Contact Info) Description 10/11/2024 Refill [facility] [address] [place] [address] Sindhu Blanton, DO [address] [facility] [address] [place] [address] Graves disease; Tachycardia Social History [...] encounter Miscellaneous Notes * Telephone Encounter - Alvina Bain PharmD - 10/12/2024 11:44 AM EDT 1 medication(s) has been approved per protocol. documented in this encounter Plan of Treatment Upcoming Encounters Date Type Department Care Team (Late st Contact Info) Description 05/05/2025 4:20 PM EST Office Visit [facility] [address] [place] [address] Sindhu Blanton DO [address] [place] [address] documented as of this encounter Visit Diagnoses [...] documented as of this encounter Care Teams Research And Development Manager Relationship Specialty Start Date End Date Irma Royal PA [address] [place] [address] PCP - General 08/15/23 documented as of this encounter
--- OUTSIDE RECORDS SUMMARY | 2024-11-09 07:17 | XMS_ITS | Encounter Summary ---
Author Organization [facility] Address [address] [place] [address] Care Team Providers Care Able Seaman Name Role Phone Irma Royal Primary Care Provider [phone] Reason for Visit * Reason Comments Med Refill Encounter Details Date Type Department Care Team (Late st Contact Info) Description 10/14/2024 Refill [facility] [address] [place] [address] Sindhu Blanton, DO [address] [facility] [address] [place] [address] Graves disease; Tachycardia Social History [...] encounter Miscellaneous Notes * Telephone Encounter - Esau Lee - 10/14/2024 2:07 PM EDT Refill request does not meet protocol. Sending to clinic for review. Additional info: Medication not on protocol. documented in this encounter Plan of Treatment Upcoming Encounters Date Type Department Care Team (Late st Contact Info) Description 05/05/2025 4:20 PM EST [facility] [address] [place] [address] Sindhu Blanton DO [address] [place] [address] documented as of this encounter [...] documented as of this encounter Care Teams Able Seaman Relationship Specialty Start Date End Date Irma Royal PA [address] [place] [address] PCP - General 08/15/23 documented as of this encounter
--- OUTSIDE RECORDS SUMMARY | 2024-11-09 07:17 | XMS_ITS | Encounter Summary ---
Author Organization Healthcare Address [address] [place] [address] Care Team Providers Care Lead Project Engineer Name Role Phone Irma Royal Primary Care Provider [phone] Encounter Details Date Type Department Care Team (Latest Contact Info) Description 10/19/2024 Travel Social History Tobacco Use Types Packs/Day [...] Description 05/05/2025 4:20 PM EST Office Visit [facility] Endocrinology [address] [place] [address] Sindhu Blanton, DO [address] [place] [address] documented as of this encounter Visit Diagnoses Not on filedocumented in this encounter Additional Health Concerns Assessment Noted Time A fall risk assessment has been complete d for the patient 10/30/2023 9:39 AM EDT A Body Mass Index follow-up plan has been documented for the patient 03/13/2024 10:27 AM EST documented as of this encounter Care Teams Lead Project Engineer Relationship Specialty Start Date End Date Irma Royal PA [address] [place] [address] PCP - General 08/15/23 documented as of this encounter
--- OUTSIDE RECORDS SUMMARY | 2024-11-09 07:17 | XMS_ITS | Continuity of Care Document ---
Author Organization [place] - [employer] [facility] Address [address] [place] [address] Assessment No assessment recorded. Plan of Treatment Reminders Order Date Submit Date Provider Last Modified By Organization Details Last Modified Time Details Appointments None recorded . Lab ferritin , serum or plasma 025 10/20/19 25 [facility] [address] [place] [address], [address], 5 08:14:56 CMP, serum or plasma 025 10/20/19 25 [facility], [address] [place] [address], [address], 5 08:14:55 HbA1c (hemoglo bin A1c), blood 025 10/20/19 25 [employer] [employer] [facility], [address] [place] [address], [address], 5 08:14:55 Referral None recorded . Procedures None recorded . Surgeries None recorded . Imaging None recorded . Medication Orders None recorded . Patient TargetsNo targets recorded. Patient Instructions Encounter Date Encounter Id Patient Instructions Last Modified By Organization Details Last Modified Time 10/19/2024 [id number] hyperthyroidism: care instructions [email or web address] Not available 10/19/2024 09:22:00 hemochromatosis: care instructions Not available 10/19/2024 09:17:52 attention defici t hyperactivity disorder (ADHD) in adults: care instructions [email or web address] Not available 10/19/2024 09:22:00 Reason for Referral None Reported. Problems Name Problem SNOMED Code Status Onset Date Resolution Date Notes Provider Name and Address Organization Details Recorded Time Obesity 482053419 Active 2023 DARBY Schmitt [address] [place] [address], [phone] 8, [employer] 4 09:38:27 Adult attention deficit hyperactivity disorder 562725591 Active 2024 DARBY Schmitt [address] [place] [address], [phone] 8, [employer] 5 17:25:41 Fatigue 09255665 Active 2024 DARBY Schmitt [address] [place] [address], [phone] 8, [employer] 17:03:34 Heartburn 01849165 Active 2024 DARBY Schmitt [address] [place] [address], [phone] 8, [employer] 5 17:04:36 Generalized anxiety disorder 08358749 Active 2024 DARBY Schmitt [address] [place] [address], [phone] 8, [employer] 5 17:25:47 Hyperthyroidis m 03237168 Active 2024 DARBY Schmitt [address] [place] [address], [phone] 8, [employer] 5 17:25:57 Polyuria 57249720 Active 2024 DARBY Schmitt [address] [place] [address], [phone] 8, [employer] 5 09:21:32 Problem Notes None recorded. Procedures Surgical History Date Name Laterality Status Provider Name and Address Organization Details Recorded Time 5 Most Recent Mammogram completed [employer] 10/19/2024 08:31:38 4 Date of Last Pap Smear completed [employer] 10/19/2024 08:32:21 Breast Biopsy completed [employer] 01/28/2024 13:05:04 Caesarean Section completed [employer]. 01/28/2024 13:05:04 Endometrial Ablation completed [employer]. 01/28/2024 13:05:04 Gallbladder Surgery completed [employer]. 01/28/2024 13:05:04 Carpal Tunnel Surgery completed [employer]. 01/28/2024 13:08:20 Imaging Results None recorded. Procedure Notes None recorded. Medical Equipment None Reported. Allergies Allergen ID Allergen Name Allergen Category Reaction Reaction Severity Criticality Documentation Date Start Date Code Code System Note Provider Name and Address Organization Details Recorded Time 55687 Product containin g penicilli n (product) medicatio n rash Not available Not available 01/28/2024 06207 [id number] [employer] 13:05:02 75599 Substance with sulfonami de structure and antibacte rial mechanism of action (substanc e) medicatio n itching nausea rash respirato ry distress Not available Not available Not available Not available Not available 01/28/2024 11251 8003 [employer] 13:05:02 Medications Name Sig Start Date Stop Date Status Note LastModified by Organization Details LastModified Time doxycycline hyclate 100 mg capsule TAKE ONE CAPSULE BY MOUTH TWICE DAILY -- FINISH ALL MEDICINE -- 08/18 completed Not Available Not Available Not Available prednisone 20 mg tablet 01/24 completed Not Available Not Available Not Available dextroamphe tamine-amph etamine 30 mg tablet 01/24 completed Not Available Not Available Not Available propranolol 40 mg tablet 08/18 completed Not Available Not Available Not Available benzonatate 100 mg capsule TAKE ONE CAPSULE BY MOUTH THREE TIMES DAILY NEEDED FOR COUGH -SWALLOW WHOLE. DO NOT CRUSH OR CHEW- 08/18 completed Not Available Not Available Not Available dextroamphe tamine-amph etamine 20 mg tablet 01/24 completed Not Available Not Available Not Available methimazole 5 mg tablet TAKE ONE TABLET BY MOUTH EVERY DAY 08/18 completed Not Available Not Available Not Available buspirone 7.5 mg tablet TAKE ONE TABLET BY MOUTH TWICE DAILY MAY CAUSE DROWSINES S 2024 active Not Available Not Available Not Avai lable methylpredn isolone 4 mg tablets in a dose pack TAKE ACCORDING TO PACKAGE INSTRUCTI ONS --TAKE WITH FOOD-- -- FINISH ALL MEDICINE -- 08/18 completed Not Available Not Available Not Available methimazole 10 mg tablet 08/18 completed Not Available Not Available Not Available Vitamin D2 1,250 mcg (50,000 unit) capsule 01/24 completed Not Available Not Available Not Available propranolol 20 mg tablet TAKE 2 AND 1/2 TABLETS BY MOUTH THREE TIMES DAILY 2024 active Not Available Not Available Not Avai lable dextroamphe tamine-amph etamine ER 25 mg 24hr capsule,ext end release 01/24 completed Not Available Not Available Not Available azithromyci n 500 mg tablet 01/24 completed Not Available Not Available Not Available atomoxetine 60 mg capsule 01/24 completed Not Available Not Available Not Available atomoxetine 80 mg capsule 01/24 completed Not Available Not Available Not Available atomoxetine 100 mg capsule 08/18 completed Not Available Not Available Not Available desvenlafax ine succinate ER 50 mg tablet,exte nded release 24 hr TAKE ONE TABLET BY MOUTH EVERY DAY active Not Available Not Available No t Available guaifenesin ER 600 mg tablet, extended release 12 hr TAKE TWO TABLETS BY MOUTH TWICE DAILY NEEDED FOR COUGH 08/18 completed Not Available Not Available Not Available Qelbree 200 mg capsule,ext ended release TAKE THREE CAPSULES BY MOUTH EVERY DAY DIRECTED FOR adhd active Not Available Not Available No t Available Wegov[employer] 1 mg/0.5 mL subcutaneou s pen injector Inject 0.5 mL every week by subcutane ous route as directed for 28 days, for weight loss. 08/18 completed Not Available Not Available Not Available [employer] 0.25 mg/0.5 mL subcutaneou s pen injector INJECT THE CONTENTS OF 1 PEN (0.25 MG / 0.5ML) SUBCUTANE OUSLY ONCE A WEEK 08/18 completed Not Available Not Available Not Available [employer] 0.5 mg/0.5 mL subcutaneou s pen injector Inject 0.5 mL every week by subcutane ous route as directed for 28 days, for weight loss. 08/18 completed Not Available Not Available Not Available Vitals Date Recorded Body height Body mass index (BMI) Body weight Oxygen saturation Oxygen saturation in Arterial blood by Pulse oximetry Heart rate Body temperature Systolic And Diastolic Provider Name and Address Organization Details Last Updated DateTime 5 160.02 cm 37.8 kg/m2 01990.3 3 g 98 % 98 % 70 /min 97.9 [degF] 108/74 mm[Hg] [employer] 5 08:31:01 Social History Question Answer Notes LastModified by Organizat ion Details LastModified Time Tobacco Smoking Status Never Smoker [email or web address] 01/28/2024 13:05:03 Do You Have An Advance Directive? Yes Information not available 01/28/2024 Is Your Home Air Conditioned? Yes Information not available 01/28/2024 If You Are , What Was Your Level Of Alcohol Consumption Prior To ? None Information not available 01/28/2024 Do You Wear A Helmet When Biking? No Information not available 01/28/2024 Are You Blind Or Do You Have Difficulty Seeing? No Information not available 01/28/2024 What Is Your Level Of Caffeine Consumption? Occasional Information not available 01/28/2024 What Type Of Breast Worker Do You Use? None Information not available 01/28/2024 In The 14 Days Before Symptom Onset, Have You Had Close Contact With A Laboratory-confir med COVID-19 While That Case Was Ill? No Information not available 01/28/2024 In The 14 Days Before Symptom Onset, Have You Had Close Contact With A Person Who Is Under Investigation For COVID-19 While That Person Was Ill? No Information not available 01/28/2024 Have You Been To An Area Known To Be High Risk For COVID-19? No Information not available 01/28/2024 Are You Deaf Or Do You Have Serious Difficulty Hearing? No Information not available 01/28/2024 What Type Of Diet Are You Following? REGULAR Information not available 01/28/2024 Who Is Your Employer? [employer] Information not available 01/28/2024 How Many Days Of Moderate To Strenuous Exercise, Like A Brisk Walk, Did You Do In The Last 7 Days? 4 Information not available 01/28/2024 Have There Been Any Changes To Your Family Or Social Situation? No Information no t available 01/28/2024 Are There Any Guns Present In Your Home? Yes Information not available 01/28/2024 Which Of Your Hands Is Dominant? Bilateral Information not available 01/28/2024 What Is Your Home Situation? Both Parents Information not available 01/28/2024 Do You Have A Medical Power Of Corporate Quality Engineer? Yes Information not available 01/28/2024 What Was The Date Of Your Most Recent Tobacco Screening? 10/19/2024 Information not available 10/19/2024 Do You Have Any Pets? Yes Information not available 01/28/2024 Do You Use Protection During Sex? No Information not available 01/28/2024 Do You Use Protection Against STDs? No Information not available 01/28/2024 What Is Your Relationship Status? Information not available 01/28/2024 Have You Repeated Any Grades? No Information not available 01/28/2024 Do You Use Your Seat Belt Or Car Seat Routinely? Yes Information not available 01/28/2024 Are You Sexually Active? Yes Information not available 01/28/2024 Do You Have Smoke And Carbon Monoxide Detectors In Your Home? Yes Information not available 01/28/2024 Are You Passively Exposed To Smoke? No Information no t available 01/28/2024 Are There Any Smokers In Your House? No Information not available 01/28/2024 Do You Participate In Social Media? Yes Information not available 08/18/2024 Do You Use Sunscreen Routinely? Yes Information not available 01/28/2024 Has Tobacco Cessation Counseling Been Provided? No Information not available 01/28/2024 Have You Recently Traveled Abroad? No Information not available 01/28/2024 Do You Have Difficulty Walking Or Climbing Stairs? No Information not available 01/28/2024 Are You Currently In School? No Information not available 01/28/2024 Do You Have Any Dietary Restrictions? No Information not available 01/28/2024 How Many Days In The Past Year Have You Consumed 4 Or More Drinks? 0 Information no t available 01/28/2024 Sex: Female Functional Status Question Answer Note LastModified by Organizat ion Details LastModified Time Do you use any illicit or recreational drugs? No Information not available 01/28/2024 Do you or have you ever used any other forms of tobacco or nicotine? No Information not available 01/28/2024 What is your level of alcohol consumption? Occasional Information not available 01/28/2024 Are you currently employed? Yes Information not available 01/28/2024 Do you have transportation difficulties? No Information not available 01/28/2024 Are you able to walk? [employer] Information not available 01/28/2024 Do you have difficulty doing errands alone? No Information not available 01/28/2024 Are you able to care for yourself? Yes Information n ot available 01/28/2024 Do you have difficulty dressing or bathing? No Information not available 01/28/2024 What is your exercise level? Occasional Information not available 01/28/2024 Mental Status Question Answer Note LastModified by Organization D etails LastModified Time Do you have difficulty concentrating, remembering or making decisions? No Information no t available 01/28/2024 Are you or have you been involved with bullying? No Information not available 01/28/2024 Family History Nothing Reported Notes:Pt is adopted and does nt know family hx Medical History Condition Response Coronary Artery Disease N Other N Gout N Kidney Stones N Blood Diseases N Hyperthyroidism N Blood Transfusion N Breast Cancer N Emergency room visit since last appointm ent. N COPD N Depression N Dermatologic Disorders N Hypothyroidism N Lung Disease N Developmental or Behavioral Disorders N Defects or Inherited Disease N Breast Problem N Difficulty Swallowing N Anesthesia Complications N History of STI N Meniere's disease N Anxiety Disorder Y Muscle, Joint, or Bone Problems N Autoimmune disease N Obesity Y Vision or Eye Problems Y Arthritis N Polyps N Infertility N Mental Disorder N Congenital Anomalies N Acid Reflux (GERD) N Cancer N Stroke N Neurologic/Epilepsy N Endometriosis N Bladder or Kidney Problems N High Cholesterol N Liver Disease N Organ Transplant N Psychiatric/Mental Health Condition N Fibromyalgia N Headaches Y Dialysis N Schizophrenia N Kidney Disease N Allergies/Hayfever N Heart Problems N Ear or Hearing Problems N Hospitalizations N Learning Disorder N Artificial Joints N Thyroid Problems Y GI Problems N Acne N ADD/ADHD Y Eating Disorder N Anemia N Constipation N Mental Illness N Ovarian Cancer N Diabetes N Bedwetting N Hepatitis/Liver Disease N Tuberculosis N Eczema N Diverticulitis N Abuse/Domestic Violence N Asthma N Trauma/Violence N Substance Abuse N Reflux/GERD N Depression/ depression N Hepatitis N Heart Disease N Pulmonary Embolism N Tourette Syndrome N Chronic Ear Infections N Pre-Eclampsia N Hypertension N Chicken Pox N Autism Spectrum Disorder (ASD) N Osteoporosis N Thrombophilias N Gynecological History Statement/Question Response Menses Monthly N HPV Vaccine N Date of Last Pap Smear 01/13/2024 Current Control Method Ablation Most Recent Mammogram 05/21/2024 Age at First Child 26 Obstetrics History GPAL:G 2 P 2 0 0 2 Type Value Multiple Births 0 Full Term 2 Induced 0 Spontaneous 0 Premature 0 Living 2 Ectopics 0 Total 2 Immunizations Vaccine Type Date Status Note Provider Nam e and Address Organization Details Recorded Time Tdap 10/02/2018 completed Not Available [facility] 10/19/2024 08:22:22 Influenza, split virus, quadrivalent, PF 02/17/2020 completed Not Available [facility] 5 08:22:22 COVID-19, mRNA, LNP-S, PF, 100 mcg/0.5mL dose or 50 mcg/0.25mL dose 05/11/2020 completed Not Available [facility] 08:22:22 COVID-19, mRNA, LNP-S, PF, 100 mcg/0.5mL dose or 50 mcg/0.25mL dose 06/10/2020 completed Not Available [facility] 5 08:22:22 COVID-19, mRNA, LNP-S, PF, 100 mcg/0.5mL dose or 50 mcg/0.25mL dose 03/13/2021 completed Not Available [facility] 5 08:22:22 Past Encounters Encounter ID Performer Location Encounter Start Date Encounter Closed Date Diagnosis/Indication Diagnosis SNOMED-CT Code Diagnosis ICD10 Code Diagnosis Note [id number] DARBY Schmitt [facility] [address] [place] [phone] 10/19/2024 08:21:19 10/19/2024 09:01:36 Hereditary hemochromatosis 37095092 E83.110 Polyuria 71047979 R35.89 Generalize d anxiety disorder 54438265 F41.1 Hyperthyroidism 01771567 E05.90 TSH now WNL. Weaning off propranolo l. Has appt with endo next week. Adult atte ntion deficit hyperactivity disorder 472090839 F90.9 Health Concerns Section Related Observation LastModified by Organization Detai ls LastModified Time None Recorded Concern Status LastModified by Organization Details LastModified Time None Recorded Payers Encounter Date Sequence Insurance Name Policy Number Policy Jeffers Covered Member ID Jeffers Member ID Guarantor Name 10/19/2024 1 [employer] [id number] Jessica H Canupp [id number] Jessica Canupp Notes Date Note Type Note Provider Name and Address Organization Details Recorded Time 10/19/2024 text/html Patient presents to follow up on recent diagnosis of hemochromatosis. She has started doing therapeutic phlebotomy at [facility] and states that she is doing much better. She states her anxiety has improved, her stomach pain has improved, her joints no longer hurt and her mind is clearer.She does state she feels like she is urinating a lot. DARBY Schmitt [address] [place] [address], [place], [phone], [facility] [employer] 10/19/2024 09:25:41 OBGyn Episode No OBEpisode recorded.
--- OUTSIDE RECORDS SUMMARY | 2024-11-09 07:17 | XMS_ITS | Data Portability ---
Author Organization [facility] [place] [facility] ADMIN Address [address] [place] [address] Care Team Providers Care Application Support Manager Name Role Phone SMITH SINHA Primary Care Provider [phone] Assessment No assessment recorded. Plan of Treatment Reminders Order Date Submit Date Provider Last Modified By Organization Details Last Modified Time Details Appointments None recorded. Lab CBC w/ auto diff 2022 023 [email or web address] [facility], [address], [address], [place], [address], 3 20:10:49 CMP, serum or plasma 2022 023 [facility], [address], [address], [place], [address], 3 20:10:49 HbA1c (hemoglobin A1c), blood 2022 023 [email or web address] [facility], [address], [address], [place], [address], 3 20:10:49 iron + TIBC + ferritin, serum 2022 023 [email or web address] [facility], [address], [address], [place], [address], 3 20:10:49 vitamin D, 25-hydroxy, total, serum 2022 023 [email or web address] [facility], [address], [address], [place], [address], 3 20:10:50 vitamin A (retinol), serum 2022 023 [facility], [address], [address], [place], [address], 3 20:10:50 vitamin E, serum 2022 023 [email or web address] [facility], [address], [address], [place], [address], 3 20:10:50 PTH (parathyroi d hormone), intact, serum or plasma 2022 023 [email or web address] [facility], [address], [address], [place], [address], 3 20:10:50 lipid panel, serum 2022 023 [email or web address] [facility], [address], [address], [place], [address], 3 20:10:50 TSH + free T4, serum 2022 023 [facility], [address], [address], [place], [address], 3 20:10:50 folate, serum 2022 023 [email or web address] [facility], [address], [address], [place], [address], 3 20:10:50 methylmalon ate, QN, serum or plasma 2022 023 [email or web address] [facility], [address], [address], [place], [address], 3 20:10:51 thiamine, QN, blood 2022 023 [email or web address] [facility], [address], [address], [place], [address], 3 20:10:51 Referral None recorded. Procedures None recorded. Surgeries esophagogas troduodenos copy (SURG) 2022 023 Cristino Cordero MD, [address], [address], [place], [address], 4 13:44:44 Imaging XR, chest, 2 view 2022 023 [facility] (Centralized Scheduling), [address], [place], [address], 3 12:32:52 electrocard iogram, routine ECG, 12 leads min 2022 023 [email or web address] Not available 3 20:09:33 Medication Orders None recorded. Patient TargetsNo targets recorded. Patient InstructionsNo instructions recorded. Reason for Referral None Reported. Results Created Date Observation Date Name Description Value Unit Range Abnormal Flag Note LastModifiedBy Organization Detail LastModifiedTime 11/23/1911/22/2022 [facility] [address] [place] [address] Phone: Fax: Name: JESSICA GREENBERG Exam Date: 11/23/19 23 : 975 Age 47 Gender : F Access ion: [id number] Physic chris: SIZEMO RE, RAIMUNDO Facili ty: [place] Facili ty HSV: Outpat ient Exam: CHEST [...] Thank you for referr JESSICA Costa to [facility]. Legall y authen ticate d by NEFTALI CAMERON 11-22 12:20: 56 CC'ed Logic: Orderi ng Provid er: SIZERICK LAGUNAS Attend ing Provid er: [facility] RAIMUNDO [facility] [address] - Physical Therapy [address] [place] [address], [address], 11/22/2022 13:49:04 Result Notes Documentation Provider Name and Address Organization Details Recorded Time Xr, Chest, 2 View : [place] [address] Name: RHETTHERBJESSICA Parada Exam Date: 11/22/2022 : 1975 Age 47 Gender: F Physician: RAIMUNDO SOLORIO Facility: [facility] Facility HSV: Outpatient Exam: CHEST 2 VIEWS CHEST, 2 views HISTORY: Preoperative exam for respiratory clearance. COMPARISON: None. FINDINGS: The lungs are clear. There is no evidence of effusion or other pleural disease. The mediastinum has a normal appearance. The cardiac silhouette is unremarkable. IMPRESSION: No acute cardiopulmonary process. Dictated By: Melani Powell Transcribed By: Melani Sawyer Transcribed On: 11/22/2022 12:20 PM Electronically signed by: Melani Powell 11/22/2022 Thank you for referring JESSICA GREENBERG to [facility]. Legally authenticated by IGGY CAMERON 2022-11-22 12:20:56 CC'ed Logic: Ordering Provider: CARRINGTON LAGUNAS Attending Provider: CARRINGTON LAGUNAS Admitting Provider: CARRINGTON Solorio DNP, ANTONELLA, PLASTIC BLOCK BOILER RELINER-C [address], [place], [place], [address] [place] [address], [place] - [facility] [place] 11/22/2022 13:49:04 Problems Name Problem SNOMED Code Status Onset Date Resolution Date Notes Provider Name and Address Organization Details Recorded Time Anxiety 46158800 Active 2022 Raimundo Solorio DNP, APRN, PLASTIC BLOCK BOILER RELINER-C [address], [place], [place], [address] [place] [address] , [place] - [facility] [place] 3 08:32:06 Morbid obesity 754356730 Active 2022 Raimundo Solorio DNP, APRN, PLASTIC BLOCK BOILER RELINER-C [address], [place], [address] [place] [address] , [place] - [facility] [place] 3 08:32:12 Unintentio nal weight gain 7335903453785 04 Active 2022 Raimundo Solorio DNP, ANTONELLA, PLASTIC BLOCK BOILER RELINER-C [address], [place], [address] [place] [address] , [place] - [facility] [place] 3 08:32:18 Disorder of function of stomach 603457091 Active 2022 Raimundo Solorio DNP, APRN, PLASTIC BLOCK BOILER RELINER-C [address], [place], [address] [place] [address] , [place] - [facility] [place] 3 08:32:26 Problem Notes Documentation Provider Name and Address Organization Details Recorded Time Nutrition Assessment : OZZY met w/ AMELIA Lynn 1975, who is a 47 YO F to complete initial nutritional assessment for intake of bariatric surgery. Pt is interested in sleeve. Height = 63 in. Weight = 227.5# (BMI = 40.3). Current Employment/Daily Activities: , teacher PMH significant for cholecystectomy, IBS, back/joint pain, carpal tunnel syndrome, plantar fasciitis, migraines, anxiety, ADHD, depression, x2 Past weight loss attempts: WW, calorie restriction, high protein/low carb, meal replacements, fasting Hx of eating disorder: denies Prescription diet pills: denies Herbal supplements/Vitamins: vitamin D daily and weekly Meal Pattern: B - gas station 6 mini donuts, diet mountain dew L - school cafeteria food D - homemade chicken, shrimp, smoked sausage jumbalaya S- ice cream Eating out: 5-7x/week, including gas station stops Beverages: diet mountain dew (60oz per day) Alcoholic consumption: denies Smoking/Tobacco: denies Exercise: walking 1 mile most evenings, 10k+ steps/day during the school year Recent changes: started walking in the evenings, trying protein shakes for breakfast Motivation for surgery: I feel like I have 30 years of failing Support after surgery: spouse Goals for surgery: relieve joint pain, sleep more comfortably Additional Notes: Weigh-Ins Needed: not required Weigh-Ins Scheduled: n/a RDN recommendations: 1. Eat no less than 2 no more than 4 hours apart 2. Track protein intake, goal of 70+g/day 3. Increase physical activity as tolerated, goal of 10k+ steps/day Pt verbally agreeable to recommendations. Denied having further questions/concerns. RDN concludes that pt is a satisfactory candidate for sx at this time. Currently no reservations. RDN will f/up and monitor PRN. . MARIA FERNANDA OGDEN, DOMENICAN, LD [address] [facility], [place], [address], [facility] [place] & [place] 11/22/2022 13:21:20 Procedures Surgical History Date Name Laterality Status Provider Name and Address Organization Details Recorded Time cholecystectomy completed Marissa MAURICIO [facility] [place] 11/14/2022 11:25:10 section completed Marissa MAURICIO [facility] [place] 11/14/2022 11:25:39 extraction of wisdom tooth completed Marissa FEILPE [facility] [place] 11/14/2022 11:25:45 destruction of lesion completed DARBY Ni [address] , [place], [address], [facility] & [place] 11/22/2022 11:06:51 Carpal Tunnel Surgery completed Marissa Blanton [facility] [place] 11/22/2022 08:08:34 Imaging Results None recorded. Procedure Notes None recorded. Medical Equipment None Reported. Allergies Allergen ID Allergen Name Allergen Category Reaction Reaction Severity Criticality Documentation Date Start Date Code Code System Note Provider Name and Address Organization Details Recorded Time 82506 Product containin g penicilli n (product) medicatio n hives moderate Not available 11/14/2022 52346 8001 SNOMED Leonardo mccallum [facility] [place] 3 09:59:47 12315 Bactrim medicatio n anaphylax is severe Not available 11/14/2022 74019 9 RxNorm Leonardo mccallum [facility] [place] 3 09:59:47 68915 red dye food,medi cation vomiting moderate Not available 11/14/2022 41578 UNK Leonardo mccallum [facility] [place] 3 09:59:47 13165 cow milk allergeni c extract food,medi cation diarrhea moderate Not available 11/14/2022 69520 5 RxNorm Leonardo mccallum [facility] [place] 3 09:59:47 Medications Name Sig Start Date [...] Body weight Body temperature Heart rate Systolic And Diastolic Provider Name and Address Organization Details Last Updated DateTime 3 160.02 cm 40.3 kg/m2 167084. 26 g 97.1 [degF] 84 /min 133/91 mm[Hg] Marissa FELIPE - NT [facility] [place] 3 08:09:47 Social History None recorded. Functional Status Question Answer Note LastModified by Organizat ion Details LastModified Time Do you use any illicit or recreational drugs? No [email or web address] Information not available 11/14/2022 What is your level of alcohol consumption? None [email or web address] Information not available 11/14/2022 What is your [...] SNOMED-CT Code Diagnosis ICD10 Code Diagnosis Note [id number] DARBY Ni [facility] [address] [facility] [address] [place] [address] 11/22/2022 07:52:44 11/22/2022 11:18:51 Obesity 002976844 E66.9 The patient will be scheduled for [...] after all testing has been completed Anxiety 36663415 F41.9 Disorder o f function of stomach 585992447 K31.89 Morbid obesity 193942495 E66.01 Health Concerns Section Related Observation LastModified by Organization Detai ls LastModified Time None Recorded Concern Status LastModified by Organization Details LastModified Time None Recorded Advance Directives Directive None Recorded Payers Insurance Date Sequence Insurance Name Policy Number Policy Jeffers Covered Member ID Jeffers Member ID Guarantor Name 11/22/2022 1 [place] [id number] Jessica H Canupp [id number] Jessica Canupp Notes Date Note Type [...] to overeat are anxiousness, boredom. DARBY Ni [address], [place], [address], [place] - [facility] - [place] & [place] 11/22/2022 11:52:40 OBGyn Episode No OBEpisode recorded.
--- OUTSIDE RECORDS SUMMARY | 2024-11-09 07:17 | XMS_ITS | Encounter Summary ---
Author Organization Healthcare Address [address] [place] [address] Care Team Providers Care Hydraulic And Plumbing Installer Name Role Phone Irma Royal Primary Care Provider [phone] Encounter Details Date Type Department Care Team (Latest Contact Info) Description 10/27/2024 Travel Social History Tobacco Use Types Packs/Day [...] Description 05/05/2025 4:20 PM EST Office Visit [facility] Endocrinology [address] [place] [address] Sindhu Blanton, DO [address] [place] [phone] documented as of this encounter Visit Diagnoses Not on filedocumented in this encounter Additional Health Concerns Assessment Noted Time A fall risk assessment has been complete d for the patient 10/30/2023 9:39 AM EDT A Body Mass Index follow-up plan has been documented for the patient 10/27/2024 4:00 PM EDT documented as of this encounter Care Teams Hydraulic And Plumbing Installer Relationship Specialty Start Date End Date Irma Royal PA [address] [place] [address] PCP - General 08/15/23 documented as of this encounter
--- OUTSIDE RECORDS SUMMARY | 2024-11-09 07:17 | XMS_ITS | Clinical Summary ---
Author Organization [facility] Address [address] [place] [address] Care Team Providers Care Winch Derrick Operator Name Role Phone Irma Royal Primary Care Provider [phone] Allergies Active Allergy Reactions Criticality Noted Date Comments Milk (Cow) Diarrhea Medium 10/30/2023 Penicillin G Rash Low 10/27/2024 Penicillins Hives,Rash Medium 07/23/2023 Red Dye #17 (Britton Red) Vomiting Medium 10/27/2024 Red Dye #40 (Allura Red) Vomiting Medium 10/30/2023 Sulfa Drugs Itching,Nausea,Rash, Shor tness of breath High 10/27/2024 Sulfamethoxazole Anaphylaxis High 07/23/2023 Sulfamethoxazole-Trimethoprim Anaphylaxis High 10/29 Trimethoprim Other - please docum ent in the comment field Low 07/23/2023 Medications busPIRone (Buspar) 7.5 MG tablet .COMPLEX 3 Active ergocalciferol 1.25 MG (89682 UT) capsule 3 Active Multiple Vitamin (multivitamin) tablet Take 1 tablet by mouth 1 (one) time each day. Active atomoxetine (Strattera) 80 MG capsule Take 1 capsule (80 mg) by mouth 1 (one) time each day. 4 Active cholecalcifero l (Vitamin D-3) 25 MCG (1000 UT) capsule Take by mouth. Activ e Qelbree 200 MG capsule sustained-rele ase 24 hr TAKE TWO CAPSULES BY MOUTH EVERY DAY DIRECTED FOR adhd 4 Active Wegovy 0.5 MG/0.5ML solution auto-injector INJECT THE CONTENTS OF 1 PEN (0.5 MG / 0.5ML) SUBCUTANEOUSLY ONCE A WEEK DIRECTED 4 Active methIMAzole (Tapazole) 5 MG tabletIndicati ons:Graves disease,Medica tion management Take 1 tablet (5 mg) by mouth 1 (one) time each day. 30 tablet 5 4 Active Additional Information Patient not taking.Reported on 10/27/2024 propranolol (Inderal) 20 MG tabletIndicati ons:Graves disease,Tachyc ardia TAKE 2 AND 1/2 TABLETS BY MOUTH THREE TIMES DAILY 225 tablet Active desvenlafaxine (Pristiq) 50 MG 24 hr tablet Take 1 tablet by mouth daily. Active Active Problems Problem Noted Date Diagnosed Date ADHD 08/30/2023 Vitamin D deficiency 08/30/2023 Hyperthyroidism 08/30/2023 Tachycardia 08/30/2023 Other specified abnormal findings of blood chemi stry 08/30/2023 Other fatigue 08/30/2023 Sleep disturbance 08/30/2023 Tremor 08/30/2023 Shortness of breath 08/30/2023 Medication management 08/30/2023 Encounters Date Type Department Care Team Description 10/27/2024 9:20 AM EDT [facility] [address] [place] [address] Sindhu Blanton, Graves disease (Primary Dx); Tachycardia; Obesity (BMI 30-39.9) 10/27/2024 Travel 10/26/2024 Travel 10/19/2024 Travel 10/14/2024 Refill [facility]ology [address] [place] [address] Sindhu Blanton, Graves disease; Tachycardia 10/11/2024 Refill [facility]ology [address] [place] [address] Sindhu Blanton, Graves disease; Tachycardia 09/16/2024 Refill [facility]ology [address] [place] [address] Sindhu Blanton, DO Graves disease; Tachycardia from Last 3 Months Social History Tobacco Use Types Packs/Day Years [...] PM EDT Sexual Orientation Not on file Last Filed Vital Signs Vital Sign Reading Time Taken Comments Blood Pressure 113/76 10/27/2024 9:18 AM EDT Pulse 67 10/27/2024 9:18 AM EDT Temperature 36.7 C (98.1 F) 10/30/2023 9:34 AM EDT Respiratory Rate 18 10/30/2023 9:34 AM EDT Oxygen Saturation 97% 10/30/2023 9:34 AM EDT Inhaled Oxygen Concentration - - Weight 98.3 kg (216 lb 11.4 oz) 10/27/2024 9:18 AM EDT Height 160 cm (5' 3 ) 10/27/2024 9:18 AM EDT Body Mass Index 38.39 10/27/2024 9:18 AM EDT Plan of Treatment Upcoming Encounters Date Type Department Care Team (Late st Contact Info) Description 05/05/2025 4:20 PM EST Office Visit [facility] Endocrinology [address] [place] [address] Sindhu Blanton, DO [address] [phone] Health Maintenance Due Date Last Done Comments [facility]-Depression Screening 1975 [facility]-HIV Screening 1975 [facility]-Hepatitis C Screening 1975 [facility]-Infant/Child/Adol SDOH Screenings 1975 [facility]- SDOH Screenings 1992 [facility]-Adult SDOH Screenings 1992 [facility]-Hepatitis B Vaccines (1 of 3 - 19+ 3-dose series) 1993 [facility]-Pap Smear 1995 [facility]-Cervical Cancer Screening 2004 [facility]-HPV/Cotest 2004 CT Colonography 2019 Colonoscopy 2019 FIT-DNA 2019 FIT 2019 FOBT 2019 Sigmoidoscopy 2019 [facility]-Colorectal Cancer Screening 2019 XAM-TKEOH-86 Vaccine ( season) 2023 03/13/2021, 06/10/2020, 05/11/2020 [facility]-Breast Cancer Screening 2024 [facility]-Pneumococcal Vaccine: 50+ Years (1 of 1 - PCV) 2024 [facility]-Zoster Vaccines (1 of 2) 2024 [facility]-Influenza Vaccine (#1) 2024 02/17/2020 [facility]-DTaP,Tdap,and Td Vaccines (2 - Td or Tdap) 10/02/2028 10/02/2018 [facility]-Obesity Intervention Completed 025, 03/13/2024, 10/30/2023, Additional history exists HPV Vaccines Aged Out No longer eligi ble based on patient's age to complete this topic [facility]-HIB Vaccines Aged Out No longer e ligible based on patient's age to complete this topic [facility]-Hepatitis A Vaccines Aged Out No longer eligible based on patient's age to complete this topic [facility]-IPV Vaccines Aged Out No longer e ligible based on patient's age to complete this topic [facility]-Rotavirus Vaccines Aged Out No lo nger eligible based on patient's age to complete this topic Procedures Procedure Name Priority Date/Time Associated Diagnosis Comments CBC W/O DIFFERENTIAL Routine 10/19/2024 9:51 AM EDT Graves disease COMPREHENSIVE METABOLIC PANEL, PLASMA Routine 10/19/2024 9:51 AM EDT Graves disease TSH Routine 10/19/2024 9:51 AM EDT Graves disease FREE T4, PLASMA Routine 10/19/2024 9:51 AM EDT Graves disease T3 Routine 10/19/2024 9:51 AM EDT Graves disease from Last 3 Months Results * T3 (10/19/2024 9:51 AM EDT) T3, Serum 111 87 - 187 ng/dL 10/19/2024 12:26 PM EDT [facility] Blood Venous blood specimen / Unknown Venipuncture / Unknown 10/19/2024 9:51 AM EDT 10/19/2024 9:51 AM EDT us Sindhu Blanton DO LAB BLOOD ORDERABLES Final Result [facility] [address] [place] [address] * CBC W/O Differential (10/19/2024 9:51 AM EDT) WBC Count 5.12 3.70 - 10.30 10*3/uL LAB HEMATOLOGY METHOD 10/19/2024 12:18 PM EDT [facility] RBC Count 4.32 3.90 - 5.20 10*6/uL LAB HEMATOLOGY METHOD 10/19/2024 12:18 PM EDT [facility] HGB 13.6 11.2 - 15.7 g/dL LAB HEMATOLOGY METHOD 10/19/2024 12:18 PM EDT [facility] HCT 41.2 34.0 - 45.0 % LAB HEMATOLOGY METHOD 10/19/2024 12:18 PM EDT [facility] Platelet Count 253 155 - 369 10*3/uL LAB HEMATOLOGY METHOD 10/19/2024 12:18 PM EDT [facility] MCV 95 79 - 98 fL LAB HEMATOLOGY METHOD 10/19/2024 12:18 PM EDT [facility] MCH 31.5 26.0 - 32.0 pg LAB HEMATOLOGY METHOD 10/19/2024 12:18 PM EDT [facility] MCHC 33.0 30.7 - 35.5 g/dL LAB HEMATOLOGY METHOD 10/19/2024 12:18 PM EDT [facility] RDW 13.8 11.5 - 14.5 % LAB HEMATOLOGY METHOD 10/19/2024 12:18 PM EDT [facility] MPV 12.3 8.8 - 12.5 fL LAB HEMATOLOGY METHOD 10/19/2024 12:18 PM EDT [facility] nRBC 0.0 <=0.0 per 100 WBCs LAB HEMATOLOGY METHOD 10/19/2024 12:18 PM EDT [facility] Blood Venous blood specimen / Unknown Venipuncture / Unknown 10/19/2024 9:51 AM EDT 10/19/2024 9:51 AM EDT Sindhu Blanton DO LAB [place] [address] * TSH (10/19/2024 9:51 AM EDT) Thyroid Stimulating Hormone, Plasma 1.24 0.40 - 4.20 uIU/mL 10/19/2024 12:26 PM EDT [facility] Blood Venous blood specimen / Unknown Venipuncture / Unknown 10/19/2024 9:51 AM EDT 10/19/2024 9:51 AM EDT Narrative [facility] - 10/19/2024 12:26 PM EDT Trimester Specific Ranges TSH ( IU/mL) 1st Trimester 0.1 - 3.0 2nd Trimester 0.19 - 4.06 3rd Trimester 0.3 - 3.7 Sindhu Blanton DO LAB [place] [address] * T4, free (10/19/2024 9:51 AM EDT) Free T4, Plasma 1.3 0.8 - 1.7 ng/dL 10/19/2024 12:26 PM EDT [facility] Blood Venous blood specimen / Unknown Venipuncture / Unknown 10/19/2024 9:51 AM EDT 10/19/2024 9:51 AM EDT Narrative [facility] - 10/19/2024 12:26 PM EDT Free T4 Trimester Specific Ranges 1st Trimester 0.9 - 1.50 ng/dL 2nd Trimester 0.7 - 1.40 ng/dL 3rd Trimester 0.7 - 1.24 ng/dL us Sindhu Blanton DO LAB BLOOD ORDERABLES Final Result [facility] [address] [place] [address] * (ABNORMAL) Comprehensive metabolic panel (10/19/2024 9:51 AM EDT) Glucose, Plasma 93 74 - 99 mg/dL 10/19/2024 12:26 PM EDT [facility] BUN, Plasma 11 7 - 21 mg/dL 10/19/2024 12:26 PM EDT [facility] Creatinine, Plasma 0.93 0.60 - 1.10 mg/dL 10/19/2024 12:26 PM EDT [facility] BUN/Creatinine Ratio 12 10/19/2024 12:26 PM EDT [facility] Sodium, Plasma 139 136 - 145 mmol/L 10/19/2024 12:26 PM EDT [facility] Potassium, Plasma 5.0(H) 3.6 - 4.9 mmol/L 10/19/2024 12:26 PM EDT [facility] Chloride, Plasma 103 97 - 107 mmol/L 10/19/2024 12:26 PM EDT [facility] CO2, Plasma 25 22 - 29 mmol/L 10/19/2024 12:26 PM EDT [facility] Anion Gap 11 6 - 16 mmol/L 10/19/2024 12:26 PM EDT [facility] Total Calcium, Plasma 9.7 8.9 - 10.2 mg/dL 10/19/2024 12:26 PM EDT [facility] Total Protein 7.4 6.3 - 7.9 g/dL 10/19/2024 12:26 PM EDT [facility] Albumin, Plasma 4.4 3.5 - 5.2 g/dL 10/19/2024 12:26 PM EDT [facility] AST, Plasma 26 10 - 35 U/L 10/19/2024 12:26 PM EDT [facility] ALT, Plasma 34 10 - 35 U/L 10/19/2024 12:26 PM EDT [facility] Alkaline Phosphatase, Plasma 138(H) 35 - 104 U/L 10/19/2024 12:26 PM EDT [facility] Total Bilirubin, Plasma 0.3 0.2 - 1.1 mg/dL 10/19/2024 12:26 PM EDT [facility] eGFRcr 75.0 mL/min/1.7 3m*2 10/19/2024 12:26 PM EDT [facility] Comment:Reported eGFRcr in m L/min/1.73m2 is based the CKD-EPI 2020 equation that does not use a race coefficient. Blood Venous blood specimen / Unknown Venipuncture / Unknown 10/19/2024 9:51 AM EDT 10/19/2024 9:51 AM EDT Sindhu Blanton DO LAB BLOOD ORDERABLES Final Result [facility] [address] [place] [address] from Last 3 Months Insurance JENNIFER Care Teams Winch Derrick Operator Relationship Specialty Start Date End Date Irma Royal PA [address] [place] [address] [facility] - General 08/15/23
--- NOTE | 2024-11-09 07:30 | US_ITS ---
PROCEDURE: US TRANSVAGINAL CLINICAL INDICATION: needs for f/u to ovarian cyst COMPARISON: CT CT ABD/PELVIS W/ ORAL AND IV from 09/21/2024 FINDINGS: Transvaginal sonographic images of the pelvis were obtained. UTERUS: 8.0cm x 4.9 cmx 4.6 cm anteverted with a combined endometrial thickness of 8.5mm. scar is seen. There is a nabothian cyst in the cervix. There is a posterior fibroid measuring 2.3 cm x 2.0 cm x 2.1 cm. There is a small collection of fluid in the fundus of the uterus measuring 6 mm. LEFT OVARY: 3.0cmx2.0cmx2.0cm with a volume of 6.2ml. There is a small follicle in the left ovary measuring 1.1 cm. RIGHT OVARY: 7.6 cmx 6.1cmx6.4cm with a volume of 152.1ml. There is a simple cyst in the right ovary measuring 5.9 cm x 6.4 cm x 5.5 cm. There are no thickened french or excrescences. Both ovaries are seen. Doppler flow to both ovaries are seen. There is no fluid in the cul-de-sac. IMPRESSION: 1. Anteverted uterus normal in shape and size. There are post ablation changes in the endometrium and it is difficult to visualize. There is a small fluid collection at the fundus of the uterus measuring 6 mm. There is a posterior fibroid measuring 2.3 cm. 2. Left ovary appears normal. There is a small follicle measuring 1.1 cm. The right ovary is markedly enlarged and contains a 6.4 cm simple appearing cyst. There are no excrescences or wall thickening. If she is asymptomatic, recommendation would be to follow up in 3-6 months to monitor for any changes in size or appearance. O-RADS 2 and almost certainly benign. (< 1 percent malignant potential.) 3. No fluid in the cul-de-sac. Dictated by: Kranthi Hassan MD 11/09/2024 10:28 Kranthi Hassan MD in [place] 11/09/2024 10:28
== END 2024-11-09 23:59 | disposition home or self-care (01) ==
LOC: RAD 07:15
PROVIDERS: PCP Physician Assistant; Visit Provider Obstetrics & Gynecology
DX: N83.02 Follicular cyst of left ovary (principal); N83.291 Other ovarian cyst, right side; N83.8 Other noninflammatory disorders of ovary, fallopian tube and broad ligament; R93.89 Abnormal findings on diagnostic imaging of other specified body structures; Z98.890 Other specified postprocedural states
CPT/HCPCS: 76830

== ENCOUNTER 2025-01-26 09:25 | Outpatient (CLI) | payer BC, SELFPAY ==
--- OUTSIDE RECORDS SUMMARY | 2025-01-26 09:27 | XMS_ITS | Clinical Summary ---
Author Organization [facility] Address [address] [place] [address] Care Team Providers Care Trimmer Hand Name Role Phone Irma Royal Primary Care Provider [phone] Allergies Active Allergy Reactions Criticality Noted Date [...] tablet .COMPLEX 3 Active ergocalciferol 1.25 MG (35958 UT) capsule 3 Active Multiple Vitamin (multivitamin) [...] / 0.5ML) SUBCUTANEOUSLY ONCE A WEEK DIRECTED Active methIMAzole (Tapazole) 5 MG tabletIndicati ons:Graves [...] abnormal findings of blood chemi stry 08/30/2023 Sleep disturbance 08/30/2023 Tremor 08/30/2023 Shortness of breath 08/30/2023 Resolved Problems Problem Noted Date Diagnosed Date Resolved Date Other fatigue 08/30/2023 01/10/2025 Medication management 08/30/20232024 Encounters Date Type Department Care Team Description 10/27/2024 9:20 AM EDT Office Visit [facility] Endocrinology [address] [place] [phone] Sindhu Blanton DO Graves disease (Primary Dx); Tachycardia; Obesity (BMI 30-39.9) 10/27/2024 Travel 10/26/2024 Travel from Last 3 Months Social History Tobacco [...] 4:20 PM EST Office Visit [facility] Endocrinology [address] [place] [address] Sindhu Blanton DO [address] [place] [address] Health Maintenance Due Date Last Done Comments [...] 2019 Sigmoidoscopy 2019 [facility]-Colorectal Cancer Screening 2019 [facility]-Breast Cancer Screening 2024 [facility]-Pneumococcal Vaccine: 50+ Years (1 of 1 - PCV) 2024 [facility]-Zoster Vaccines (1 of 2) 2024 [id number] Vaccine ( season) 2024 03/13/2021, 06/10/2020, 05/11/2020 [facility]-Influenza Vaccine (#1) 2024 02/17/2020 [facility]-DTaP,Tdap,and Td [...] on patient's age to complete this topic Insurance JENNIFER Care Teams Trimmer Hand Relationship Specialty Start Date End Date Irma Royal PA [address] [place] [address] PCP - General 08/15/23
--- OUTSIDE RECORDS SUMMARY | 2025-01-26 09:27 | XMS_ITS | Encounter Summary ---
Author Organization [facility] Address [address] [place] [address] Care Team Providers Care Digital Manager Name Role Phone Irma Royal Primary Care Provider [phone] Reason for Visit * Reason Comments Med Refill Encounter Details Date Type Department Care Team (Late st Contact Info) Description 10/14/2024 Refill [facility] [address] [place] [address] Sindhu Blanton, DO [address] [facility] [address] [place] [address] Graves disease; Tachycardia Social History [...] 05/05/2025 4:20 PM EST [facility] [address] [place] [place] [address] Sindhu Blanton DO [address] [place] [address] documented as of this encounter [...] documented as of this encounter Care Teams Digital Manager Relationship Specialty Start Date End Date Irma Royal PA [address] [place] [address] PCP - General 08/15/23 documented as of this encounter
--- NOTE | 2025-01-26 09:30 | US_ITS ---
PROCEDURE: US TRANSVAGINAL CLINICAL INDICATION: 3 month follow up right ovary COMPARISON: CT CT ABD/PELVIS W/ ORAL AND IV from 09/21/2024 US US TRANSVAGINAL from 11/09/2024 FINDINGS: Transvaginal sonographic images of the pelvis were obtained. UTERUS: 7.7 cm x 4.5cmx 3.8 anteverted with a combined endometrial thickness of 5.5mm. There is a posterior fibroid measuring 2.2 cm x 1.9 cm x 2.2 cm. There is a small amount of fluid at the fundus of the uterus within the endometrium. LEFT OVARY: 2.1cmx1.4cmx1.2cm with a volume of 1.9ml. RIGHT OVARY: 7.3cmx 6.6 cm x5.8 cm with a volume of 145.1ml. There is a simple cyst within the right ovary that measures 6.6 cm x 5.4 cm x 5.1 cm. Both ovaries are seen and appear normal. Doppler flow to both ovaries are seen. There is no fluid in the cul-de-sac. IMPRESSION: 1. Anteverted uterus normal in shape and size. The endometrium is thin. Patient has had a previous ablation. There is a small amount of fluid at the fundus of the uterus. There is a posterior fibroid measuring 2.2 cm. 2. Left ovary is seen and appears atrophic. The right ovary continues to be enlarged. It contains a simple cyst measuring 6.4 cm with no excrescences or mural nodules. It has not appreciably changed in size since her last ultrasound 2 months ago. 3. No fluid in the cul-de-sac. 4. Would suggest repeat scan in 6 months to follow-up on the simple cyst. Likely benign. Dictated by: Kranthi Hassan MD 01/26/2025 14:15 Kranthi Hassan MD in [place] 01/26/2025 14:15
== END 2025-01-26 23:59 | disposition home or self-care (01) ==
LOC: RAD 09:25
PROVIDERS: PCP Physician Assistant; Visit Provider Obstetrics & Gynecology
DX: D25.9 Leiomyoma of uterus, unspecified (principal); N85.4 Malposition of uterus; N83.312 Acquired atrophy of left ovary; N83.8 Other noninflammatory disorders of ovary, fallopian tube and broad ligament; N83.291 Other ovarian cyst, right side; Z98.890 Other specified postprocedural states
CPT/HCPCS: 76830